=== PATIENT | male | born 1940 | race Caucasian/White ===

== ENCOUNTER 2018-11-07 05:49 | Emergency (ER) | payer OTHER ==
[2018-11-07 07:01] LABS: Absolute Lymphocytes (CBC) 1.1 K/uL (0.7-4.9); Absolute Monocytes 0.7 K/uL (0.1-1.3); Absolute Neutrophil 5.4 K/uL (1.8-8.0); Basophils % 0.6 % (0-1.3); Eosinophils % 2.8 % (0-4.4); Lymphocytes % 14.3 % (15.3-44.8); MPV 9.1 fL (7.6-11.3); Monocytes % 9.5 % (3.3-12.3); RBC Red Blood Cell Count 4.65 M/uL (4.33-5.43)
[2018-11-07 07:02] LABS: Protime INR 1.06
--- NOTE | 2018-11-07 07:41 | ER ---
Nurse's Notes [facility] Name: Mendez Bajwa Age: 78 yrs Sex: Male : 1940 Arrival Date: 11/07/2018 Time: 05:53 Bed 18 Private MD: Timothy Brown C Diagnosis: Epistaxis Presentation: 11/07 06:02 Presenting complaint: Patient states: he started having a nose bleed last night at bb approx 2130 but he got it stopped several times then went to bed at 0100 and at 0500 woke up with it bleeding again with clots. Transition of care: patient was not received from another setting of care. Onset of symptoms was November 06, 2018. Risk Assessment: Do you want to hurt yourself or someone else? Patient reports no desire to harm self or others. Initial Sepsis Screen: Does the patient meet any 2 criteria? No. Patient's initial sepsis screen is negative. Does the patient have a suspected source of infection? No. Patient's initial sepsis screen is negative. Care prior to arrival: None. 06:02 Method Of Arrival: Ambulatory 06:02 Acuity: BRYAN 3 bb Historical: - Allergies: 06:08 Celebrex; bb 06:08 Ramipril; bb - Home Meds: 06:08 amlodipine 5 mg tab every morning [Active]; amlodipine 2.5 mg tab PRN [Active]; aspirin bb 81 mg Oral chew 1 tab once daily [Active]; atorvastatin 10 mg Oral tab 1 tab once daily [Active]; Nitroglycerin Oral PRN [Active]; alfuzosin 10 mg Oral Tb24 1 tab once daily [Active]; irbesartan 75 mg oral tab 1 tab once daily [Active]; omeprazole 20 mg Oral TbEC 20 mg daily [Active]; - PMHx: 06:08 enlarged prostate; High Cholesterol; Hypertension; Myocardial infarction; Sleep Apnea; bb CAD; - PSHx: 06:08 basal cell carcinoma; bb - Immunization history:: Adult Immunizations up to date, Flu vaccine is up to date. - Social history:: Smoking status: Patient/guardian denies using tobacco, Patient/guardian denies using alcohol, street drugs. - Ebola Screening: : No symptoms or risks identified at this time. Screenin:07 Abuse screen: Denies threats or abuse. Nutritional screening: No deficits noted. jd3 Tuberculosis screening: No symptoms or risk factors identified. Fall Risk Ambulatory Aid- None/Bed Rest/Nurse Assist (0 pts). Gait- Normal/Bed Rest/Wheelchair (0 pts) Mental Status- Oriented to own ability (0 pts). Total Fish Fall Scale indicates No Risk (0-24 pts). Assessment: 06:02 General: Appears in no apparent distress. uncomfortable, Behavior is calm, cooperative, jd3 appropriate for age. Pain: Denies pain. Neuro: Level of Consciousness is awake, alert, obeys commands, Oriented to person, place, time, situation. Cardiovascular: Capillary refill < 3 seconds Patient's skin is warm and dry. Respiratory: Airway is patent Respiratory effort is even, unlabored, Respiratory pattern is regular, symmetrical. GI: No signs and/or symptoms were reported involving the gastrointestinal system. : No signs and/or symptoms were reported regarding the genitourinary system. EENT: Nares with bleeding noted Reports nose bleed. Derm: Skin is intact, Skin is dry, Skin is normal, Skin temperature is warm. Musculoskeletal: Circulation, motion, and sensation intact. Range of motion: intact in all extremities. 07:15 Reassessment: Patient appears in no apparent distress at this time. Patient and/or hb family updated on plan of care and expected duration. Pain level reassessed. Patient is alert, oriented x 3, equal unlabored respirations, skin warm/dry/pink. 07:55 Reassessment: Discharge ordered, d/c pending completion of IV bolus. NAD. at hb bedside. Vital Signs: 06:08 BP 136 / 72; Pulse 89; Resp 18 S; Temp 97.7(O); Pulse Ox 94% on R/A; Weight 94.8 kg bb (R); Height 5 ft. 11 in. (180.34 cm) (R); Pain 0/10; 06:08 Body Mass Index 29.15 (94.80 kg, 180.34 cm) bb ED Course: 05:53 Patient arrived in ED. es 05:53 Timothy Brown MD is Private Physician. es 06:02 Ramos Farfan, TRINH is Primary Nurse. jd3 06:06 Triage completed. bb 06:07 Patient has correct armband on for positive identification. Bed in low position. Call jd3 light in reach. Side rails up X 1. 06:08 Arm band placed on Patient placed in an exam room, on a stretcher, on pulse oximetry. bb Family accompanied patient. 06:16 [facility] Go[facility]C [facility]. snw 06:16 Johnathon Maddox MD is Attending Physician. snw 06:30 Inserted saline lock: 20 gauge in right antecubital area, using aseptic technique. jd3 Blood collected. 07:40 Uzma Grace MD is Referral Physician. snw 08:23 No provider procedures requiring assistance completed. IV discontinued, intact, hb bleeding controlled, No redness/swelling at site. Pressure dressing applied. Administered Medications: 07:51 Drug: NS 0.9% 500 ml Volume: 500 ml; Route: IV; Rate: 1 bolus; Site: right antecubital; hb 08:23 Follow up: Response: No adverse reaction; IV Status: Completed infusion hb Outcome: 07:40 Discharge ordered by MD. snw 08:23 Discharged to home ambulatory, with significant other. hb 08:23 Condition: stable 08:23 Discharge instructions given to patient, Instructed on discharge instructions, follow up and referral plans. medication usage, Demonstrated understanding of instructions, follow-up care, medications, Prescriptions given X 1. 08:23 Patient left the ED. hb Signatures: Saba Goetz FNP-C FNP-Csnw Minnie Hollis Brenda, RN RN Deborah Rees RN RN Ramos Mcdermott RN RN jd3
--- NOTE | 2018-11-07 07:41 | EDPHYS ---
Physician Documentation [facility] Name: Mendez Bajwa Age: 78 yrs Sex: Male : 1940 Arrival Date: 11/07/2018 Time: 05:53 Bed 18 Private MD: Timothy Brown C ED Physician Johnathon Maddox HPI: 11/07 06:25 This 78 yrs old Male presents to ER via Ambulatory with complaints of Nose snw Bleed. 06:25 The patient presents with a nose bleed, that is apparently posterior, from the right snw nare, occurred spontaneously, that is intermittent with clots, causative factors include: aspirin therapy, and the bleeding resolved prior to arrival. Onset: The symptoms/episode began/occurred suddenly, last night. Modifying factors: The symptoms are alleviated by unknown, the symptoms are aggravated by nothing. Associated signs and symptoms: The patient has no apparent associated signs or symptoms, Loss of consciousness: the patient experienced no loss of consciousness. Severity of symptoms: At their worst the symptoms were mild in the emergency department the symptoms have resolved and did so just prior to arrival. The patient has experienced a previous episode, 2016 s/p brelinta, used epistaxis balloon and took 6 mo to heal. The patient has not recently seen a physician. has seen Dr. Grace in the past. Historical: - Allergies: 06:08 Celebrex; bb 06:08 Ramipril; bb - Home Meds: 06:08 amlodipine 5 mg tab every morning [Active]; amlodipine 2.5 mg tab PRN [Active]; aspirin bb 81 mg Oral chew 1 tab once daily [Active]; atorvastatin 10 mg Oral tab 1 tab once daily [Active]; Nitroglycerin Oral PRN [Active]; alfuzosin 10 mg Oral Tb24 1 tab once daily [Active]; irbesartan 75 mg oral tab 1 tab once daily [Active]; omeprazole 20 mg Oral TbEC 20 mg daily [Active]; - PMHx: 06:08 enlarged prostate; High Cholesterol; Hypertension; Myocardial infarction; Sleep Apnea; bb CAD; - PSHx: 06:08 basal cell carcinoma; bb - Immunization history:: Adult Immunizations up to date, Flu vaccine is up to date. - Social history:: Smoking status: Patient/guardian denies using tobacco, Patient/guardian denies using alcohol, street drugs. - Ebola Screening: : No symptoms or risks identified at this time. ROS: 06:25 Constitutional: Negative for fever, chills, and weight loss, Eyes: Negative for injury, snw pain, redness, and discharge, Neck: Negative for injury, pain, and swelling, Cardiovascular: Negative for chest pain, palpitations, and edema, Respiratory: Negative for shortness of breath, cough, wheezing, and pleuritic chest pain, Abdomen/GI: Negative for abdominal pain, nausea, vomiting, diarrhea, and constipation, Back: Negative for injury and pain, : Negative for injury, bleeding, discharge, and swelling, MS/Extremity: Negative for injury and deformity, Skin: Negative for injury, rash, and discoloration, Neuro: Negative for headache, weakness, numbness, tingling, and seizure. 06:25 ENT: Positive for nose bleed. Exam: 06:24 Constitutional: This is a well developed, well nourished patient who is awake, alert, snw and in no acute distress. Head/Face: Normocephalic, atraumatic. Eyes: Pupils equal round and reactive to light, extra-ocular motions intact. Lids and lashes normal. Conjunctiva and sclera are non-icteric and not injected. Cornea within normal limits. Periorbital areas with no swelling, redness, or edema. Neck: Trachea midline, no thyromegaly or masses palpated, and no cervical lymphadenopathy. Supple, full range of motion without nuchal rigidity, or vertebral point tenderness. No Meningismus. Chest/axilla: Normal chest wall appearance and motion. Nontender with no deformity. No lesions are appreciated. Cardiovascular: Regular rate and rhythm with a normal S1 and S2. No gallops, murmurs, or rubs. Normal PMI, no JVD. No pulse deficits. Respiratory: Lungs have equal breath sounds bilaterally, clear to auscultation and percussion. No rales, rhonchi or wheezes noted. No increased work of breathing, no retractions or nasal flaring. Abdomen/GI: Soft, non-tender, with normal bowel sounds. No distension or tympany. No guarding or rebound. No evidence of tenderness throughout. Back: No spinal tenderness. No costovertebral tenderness. Full range of motion. Skin: Warm, dry with normal turgor. Normal color with no rashes, no lesions, and no evidence of cellulitis. MS/ Extremity: Pulses equal, no cyanosis. Neurovascular intact. Full, normal range of motion. Neuro: Awake and alert, GCS 15, oriented to person, place, time, and situation. Cranial nerves II-XII grossly intact. Motor strength 5/5 in all extremities. Sensory grossly intact. Cerebellar exam normal. Normal gait. 06:24 ENT: External ear(s): are unremarkable, Nose: Nasal mucosa: intact, Mouth: is normal, Posterior pharynx: is normal, Voice: is normal. Vital Signs: 06:08 BP 136 / 72; Pulse 89; Resp 18 S; Temp 97.7(O); Pulse Ox 94% on R/A; Weight 94.8 kg bb (R); Height 5 ft. 11 in. (180.34 cm) (R); Pain 0/10; 06:08 Body Mass Index 29.15 (94.80 kg, 180.34 cm) bb MDM: 06:16 Patient medically screened. snw 07:42 Data reviewed: vital signs, nurses notes. Data interpreted: Pulse oximetry: on room air snw is 94 %. Interpretation: acceptable. Counseling: I had a detailed discussion with the patient and/or guardian regarding: the historical points, exam findings, and any diagnostic results supporting the discharge/admit diagnosis, lab results, the need for outpatient follow up, to return to the emergency department if symptoms worsen or persist or if there are any questions or concerns that arise at home. Special discussion: Based on the history and exam findings, there is no indication for further emergent testing or inpatient evaluation. I discussed with the patient/guardian the need to see the ENT specialist for further evaluation of the symptoms. 11/07 06:24 Order name: CBC with Diff; Complete Time: 07:31 snw 11/07 06:24 Order name: Chem 7; Complete Time: 07:31 snw 11/07 06:24 Order name: PT-INR; Complete Time: 07:31 snw Administered Medications: 07:51 Drug: NS 0.9% 500 ml Volume: 500 ml; Route: IV; Rate: 1 bolus; Site: right antecubital; hb 08:23 Follow up: Response: No adverse reaction; IV Status: Completed infusion hb Disposition: 11:31 Co-signature as Attending Physician, Johnathon Maddox MD I agree with the assessment and shyam plan of care. Disposition: 11/07/18 07:40 Discharged to Home. Impression: Epistaxis. - Condition is Stable. - Discharge Instructions: Nosebleed, Adult. - Prescriptions for Bronte Saline Gel - insert 1 application by INTRANASAL route 2-3 times daily; 1 bottle. - Medication Reconciliation Form, Thank You Letter, Antibiotic Education, Prescription Opioid Use form. - Follow up: Uzma Grace MD; When: 1 - 2 days; Reason: Recheck today's complaints, Continuance of care, Re-evaluation by your physician. Signatures: Dispatcher [employer] EDKY Johnathon Maddox MD MD cha Therrien, Shelly, IRRADIATED FUEL HANDLER-C IRRADIATED FUEL HANDLER-Csnw Candace Santizo, RN RN Deborah Rees RN RN hb Corrections: (The following items were deleted from the chart) 08:23 07:40 11/07/2018 07:40 Discharged to Home. Impression: Epistaxis. Condition is Stable. hb Forms are Medication Reconciliation Form, Thank You Letter, Antibiotic Education, Prescription Opioid Use. Follow up: Uzma Grace; When: 1 - 2 days; Reason: Recheck today's complaints, Continuance of care, Re-evaluation by your physician. snw
[2018-11-07] MEDS ORDERED: NA CHLORIDE 0.9% 500 ML ONE (07:57)
== END 2018-11-07 08:23 | disposition home or self-care (01) ==
LOC: ER 05:49
DX: R04.0 Epistaxis (principal); N40.0 Benign prostatic hyperplasia without lower urinary tract symptoms; I10 Essential (primary) hypertension; E78.00 Pure hypercholesterolemia, unspecified; I25.2 Old myocardial infarction; Z85.828 Personal history of other malignant neoplasm of skin; Z88.8 Allergy status to other drugs, medicaments and biological substances; Z79.82 Long term (current) use of aspirin
CPT/HCPCS: 36415; 80048; 85025; 85610; 96360; 99284

== ENCOUNTER 2020-11-02 08:43 | Inpatient (IN) | payer OTHER ==
--- NOTE | 2020-11-02 09:10 | RAD REPORT ---
EXAM DESCRIPTION: RAD - Chest Single View - 11/02/2020 9:02 am CLINICAL HISTORY: FEVER Chest pain. COMPARISON: Chest Single View dated 05/23/2017; Chest Single View dated 05/12/2017; Chest Single View dated 05/09/2017; Chest Single View dated 05/08/2017 FINDINGS: Portable technique limits examination quality. The lungs are grossly clear. The heart is normal in size. No displaced fractures. IMPRESSION: No acute intrathoracic process suspected.
[2020-11-02 09:55] LABS: Absolute Lymphocytes (CBC) 0.4 K/uL (0.7-4.9); Basophils % 0.2 % (0-1.3); Hematocrit 43.1 % (39.6-49.0); Lymphocytes % 3.4 % (15.3-44.8); MPV 8.9 fL (7.6-11.3); RBC Red Blood Cell Count 4.77 M/uL (4.33-5.43)
[2020-11-02] MEDS ORDERED: IBUPROFEN 400 MG TAB ONE (10:02)
[2020-11-02] MEDS ORDERED: NA CHLORIDE 0.9% 500 ML ONE (10:02)
[2020-11-02 10:07] LABS: C-Reactive Protein 61.6 mg/L (<3.00); Ferritin 259.3 ng/mL (26-388); Potassium 3.9 mmol/L (3.5-5.1)
[2020-11-02 10:22] LABS: Platelet Estimate ADEQ; White Blood Cell Scan OK (OK)
[2020-11-02 10:23] LABS: Blood Morphology Comment NOT SEEN (NOT SEEN)
[2020-11-02 11:09] LABS: SARS-COV-2 RT PCR NEGATIVE (NEGATIVE)
[2020-11-02 13:22] LABS: Urine Bacteria <20 /HPF (NONE SEEN); Urine RBC <5 /HPF (NONE SEEN)
[2020-11-02 13:23] LABS: Urine Mucus 1+ /HPF (NONE SEEN)
[2020-11-02 13:24] LABS: Urine Blood TRACE (NEG); Urine Glucose NEGATIVE (NEG); Urine Protein 1+ (NEG); Urine pH 5.5 (5.0-7.0)
--- NOTE | 2020-11-02 13:31 | ER ---
Nurse's Notes [facility] Name: Mendez Bajwa Age: 80 yrs Sex: Male : 1940 Arrival Date: 11/02/2020 Time: 08:44 Bed 8 Private MD: Diagnosis: Fever of other and unknown origin Presentation: 11/02 08:44 Chief complaint: EMS states: received his COVID-19 vaccine on and has been sv having intermittent fever since. Vitals WNL. Coronavirus screen: Client denies travel out of the [place] in the last 14 days. At this time, the client does not indicate any symptoms associated with coronavirus-19. Ebola Screen: No symptoms or risks identified at this time. Risk Assessment: Do you want to hurt yourself or someone else? Patient reports no desire to harm self or others. Onset of symptoms was October 29, 2020. 08:44 Method Of Arrival: EMS: [facility] sv 08:44 Acuity: BRYAN 3 ss 10:46 Initial Sepsis Screen: Does the patient meet any 2 criteria? No. Patient's initial tw2 sepsis screen is negative. Does the patient have a suspected source of infection? Yes:. Triage Assessment: 08:50 General: Appears in no apparent distress. obese, well groomed, Behavior is calm, tw2 cooperative, appropriate for age. Pain: Denies pain. EENT: Reports fever, took Tylenol at 4 am. Neuro: Level of Consciousness is awake, alert, obeys commands, Oriented to person, place, time, situation. Cardiovascular: Patient's skin is warm and dry. Respiratory: Reports shortness of breath at rest cough that is Airway is patent Respiratory effort is even, unlabored, Respiratory pattern is regular, symmetrical. GI: No signs and/or symptoms were reported involving the gastrointestinal system. Abdomen is round non-distended. : No signs and/or symptoms were reported regarding the genitourinary system. Derm: Skin is intact, is healthy with good turgor, Skin is dry, Skin temperature is hot. Musculoskeletal: Range of motion: intact in all extremities. Historical: - Allergies: 08:46 Celebrex; sv 08:46 Ramipril; sv - Home Meds: 08:55 amlodipine 2.5 mg tab PRN [Active]; amlodipine 5 mg tab every morning [Active]; aspirin tw2 81 mg Oral chew 1 tab once daily [Active]; irbesartan 75 mg Oral tab 1 tab once daily [Active]; omeprazole 20 mg Oral TbEC 20 mg daily [Active]; alfuzosin 10 mg Oral Tb24 1 tab once daily [Active]; atorvastatin 10 mg Oral tab 1 tab once daily [Active]; Nitroglycerin Oral PRN [Active]; sildenafil oral 50 oral [Active]; Vitamin C 250 mg Oral tab [Active]; zinc 50 mg oral tab [Active]; Vitamin D3 2,000 unit oral cap [Active]; - PMHx: 08:46 CAD; High Cholesterol; enlarged prostate; Hypertension; Myocardial infarction; Sleep sv Apnea; - PSHx: 08:46 basal cell carcinoma; sv - Immunization history:: Adult Immunizations. - Social history:: Smoking status: . - Family history:: not pertinent. - Hospitalizations: : No recent hospitalization is reported. Screenin:51 Abuse screen: Denies threats or abuse. Nutritional screening: No deficits noted. tw2 Tuberculosis screening: No symptoms or risk factors identified. Fall Risk Secondary diagnosis (15 points) impaired mobility. Assessment: 08:50 Reassessment: see triage assessment. tw2 09:40 Reassessment: Patient appears in no apparent distress at this time. No changes from tw2 previously documented assessment. Patient and/or family updated on plan of care and expected duration. Pain level reassessed. Patient is alert, oriented x 3, equal unlabored respirations, skin warm/dry/pink. 10:46 Reassessment: Patient appears in no apparent distress at this time. No changes from tw2 previously documented assessment. Patient and/or family updated on plan of care and expected duration. Pain level reassessed. Patient is alert, oriented x 3, equal unlabored respirations, skin warm/dry/pink. 11:54 Reassessment: Patient appears in no apparent distress at this time. No changes from tw2 previously documented assessment. Patient and/or family updated on plan of care and expected duration. Pain level reassessed. Patient is alert, oriented x 3, equal unlabored respirations, skin warm/dry/pink. 12:55 Reassessment: Patient appears in no apparent distress at this time. No changes from tw2 previously documented assessment. Patient and/or family updated on plan of care and expected duration. Pain level reassessed. Patient is alert, oriented x 3, equal unlabored respirations, skin warm/dry/pink. 14:00 Reassessment: Patient appears in no apparent distress at this time. No changes from hb previously documented assessment. Patient and/or family updated on plan of care and expected duration. Pain level reassessed. Patient is alert, oriented x 3, equal unlabored respirations, skin warm/dry/pink. 15:00 Reassessment: Patient appears in no apparent distress at this time. No changes from hb previously documented assessment. Patient and/or family updated on plan of care and expected duration. Pain level reassessed. Patient is alert, oriented x 3, equal unlabored respirations, skin warm/dry/pink. 16:00 Reassessment: Patient appears in no apparent distress at this time. No changes from hb previously documented assessment. Patient and/or family updated on plan of care and expected duration. Pain level reassessed. Patient is alert, oriented x 3, equal unlabored respirations, skin warm/dry/pink. 17:15 Reassessment: Patient appears in no apparent distress at this time. Patient and/or hb family updated on plan of care and expected duration. Pain level reassessed. Patient is alert, oriented x 3, equal unlabored respirations, skin warm/dry/pink. 18:26 Reassessment: Patient appears in no apparent distress at this time. No changes from tw2 previously documented assessment. Patient and/or family updated on plan of care and expected duration. Pain level reassessed. Patient is alert, oriented x 3, equal unlabored respirations, skin warm/dry/pink. Vital Signs: 08:50 BP 119 / 58; Pulse 89; Resp 18; Pulse Ox 94% on R/A; ss 08:50 Temp 100.6(O); Weight 95.25 kg (R); Height 5 ft. 11 in. (180.34 cm) (R); tw2 09:40 BP 124 / 70; Pulse 85; Resp 20; Temp 101.8(O); Pulse Ox 94% on R/A; tw2 10:43 BP 118 / 68; Pulse 79; Resp 15; Temp 100.2(O); Pulse Ox 95% on R/A; tw2 11:54 BP 110 / 69; Pulse 75; Resp 17; Temp 97.9(O); Pulse Ox 95% on R/A; tw2 12:54 BP 96 / 66; Pulse 62; Resp 12; Pulse Ox 95% on R/A; tw2 13:47 Temp 96.4(O); dh3 14:00 BP 98 / 46; Pulse 70; Resp 19; Pulse Ox 96% on 2 lpm NC; tw2 15:00 BP 103 / 59; Pulse 79; Resp 18; Pulse Ox 96% on 2 lpm NC; tw2 16:00 BP 114 / 68; Pulse 85; Resp 14; Pulse Ox 95% on 2 lpm NC; tw2 17:00 BP 145 / 68; Pulse 93; Resp 19; Pulse Ox 95% on 2 lpm NC; tw2 18:24 BP 143 / 77; Pulse 97; Resp 22; Pulse Ox 97% on 2 lpm NC; tw2 19:39 BP 135 / 89; Pulse 107; Resp 18; Pulse Ox 94% on 2 lpm NC; rv 08:50 Body Mass Index 29.29 (95.25 kg, 180.34 cm) tw2 ED Course: 08:44 Patient arrived in ED. ds1 08:44 Placed in gown. Bed in low position. lacrosse player on. Pulse ox on. NIBP on. tw2 08:45 Ted Song MD is Attending Physician. rn 08:45 Triage completed. sv 08:46 Arm band placed on. sv 08:52 Jennifer Webster, TRINH is Primary Nurse. tw2 09:00 X-ray completed. Portable x-ray completed in exam room. Patient tolerated procedure sw well. 09:02 XRAY Chest (1 view) In Process Unspecified. EDMS 09:50 Inserted saline lock: 20 gauge in right hand, using aseptic technique. Blood collected. tw2 09:57 CBC Smear Scan Sent. sv 12:29 Urine Culture Sent. tw2 12:29 Urine Microscopic Only Sent. tw2 13:30 Timothy Brown MD is Hospitalizing Provider. rn 19:14 Primary Nurse role handed off by Jennifer Webster, TRINH mw2 19:36 Camilo Geronimo, TRINH is Primary Nurse. rv 19:38 No provider procedures requiring assistance completed. IV is patent, with fluids rv infusing freely, Patient admitted, IV remains in place. Administered Medications: 09:51 Drug: Motrin 800 mg Route: PO; tw2 10:50 Follow up: Response: No adverse reaction; Temperature is decreased tw2 09:51 Drug: NS 0.9% 500 ml Route: IV; Rate: bolus; Site: right hand; tw2 10:50 Follow up: Response: No adverse reaction; IV Status: Completed infusion; IV Intake: tw2 500ml 14:55 Drug: LevaQUIN 500 mg Volume: 100 ml; Route: IVPB; Infused Over: 60 mins; Site: right hb antecubital; 15:55 Follow up: Response: No adverse reaction; IV Status: Completed infusion; IV Intake: tw2 100ml Intake: 10:50 IV: 500ml; Total: 500ml. tw2 15:55 IV: 100ml; Total: 600ml. tw2 Output: 12:29 Urine: 100ml (Voided); Total: 100ml. tw2 Outcome: 13:30 Decision to Hospitalize by Provider. rn 19:38 Admitted to Med/surg accompanied by tech, via wheelchair, room 219, Other sbar, ekg rv Report called to ABHAY TSANG 19:38 Condition: good 19:38 Instructed on the need for admit. 19:39 Patient left the ED. rv Signatures: Dispatcher [employer] Uzma Marie RN TRINH Patsy Ortega ds1 Ted Song MD MD rn Smirch, Shelby, RN RN ss Warren, Shannon sw Baxter, Heather, RN RN hb Wise, Tara, RN RN tw2 Brittney Grace 3 George Dow 2 Camilo Geronimo RN RN rv Corrections: (The following items were deleted from the chart) 08:49 08:44 Acuity: BRYAN 4 [facility] 12:29 11:54 BP 110 / 69; Pulse 75bpm; Resp 17bpm; Pulse Ox 95% RA; tw2 tw2 18:25 16:00 BP 114 / 68; Pulse 85bpm; Resp 14bpm; Pulse Ox 95% RA; tw2 tw2 18:25 15:00 BP 103 / 59; Pulse 79bpm; Resp 18bpm; Pulse Ox 96% RA; tw2 tw2
--- NOTE | 2020-11-02 13:31 | EDPHYS ---
Physician Documentation [facility] Name: Mendez Bajwa Age: 80 yrs Sex: Male : 1940 Arrival Date: 11/02/2020 Time: 08:44 Bed 8 Private MD: ED Physician Ted Song HPI: 11/02 08:58 This 80 yrs old Male presents to ER via EMS with complaints of Fever. rn 08:58 The patient reports fever, not measured (subjective). Onset: The symptoms/episode rn began/occurred yesterday. Modifying factors: there are no obvious modifying factors. Severity of symptoms: At their worst the symptoms were mild in the emergency department the symptoms are unchanged. The patient has not experienced similar symptoms in the past. Reports had first COVID vaccine , felt ok, went to eat at [employer], now reports chills and fever since yesterday. Denies chest pain/sob/abd pain/vomiting/diarrhea. . Historical: - Allergies: 08:46 Celebrex; sv 08:46 Ramipril; sv - Home Meds: 08:55 amlodipine 2.5 mg tab PRN [Active]; amlodipine 5 mg tab every morning [Active]; aspirin tw2 81 mg Oral chew 1 tab once daily [Active]; irbesartan 75 mg Oral tab 1 tab once daily [Active]; omeprazole 20 mg Oral TbEC 20 mg daily [Active]; alfuzosin 10 mg Oral Tb24 1 tab once daily [Active]; atorvastatin 10 mg Oral tab 1 tab once daily [Active]; Nitroglycerin Oral PRN [Active]; sildenafil oral 50 oral [Active]; Vitamin C 250 mg Oral tab [Active]; zinc 50 mg oral tab [Active]; Vitamin D3 2,000 unit oral cap [Active]; - PMHx: 08:46 CAD; High Cholesterol; enlarged prostate; Hypertension; Myocardial infarction; Sleep sv Apnea; - PSHx: 08:46 basal cell carcinoma; sv - Immunization history:: Adult Immunizations. - Social history:: Smoking status: . - Family history:: not pertinent. - Hospitalizations: : No recent hospitalization is reported. 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 Exam: 08:58 Constitutional: This is a well developed, well nourished patient who is awake, alert, rn mild tachypnea Head/Face: Normocephalic, atraumatic. ENT: No stridor Cardiovascular: Regular rate and rhythm. No pulse deficits. Respiratory: + mild tachypnea, no retractions, diminished at bases Abdomen/GI: soft, non-tender Skin: Warm, dry MS/ Extremity: Pulses equal, no cyanosis. Neurovascular intact. Full, normal range of motion. Equal circumference. Neuro: Awake and alert, GCS 15, oriented to person, place, time, and situation. Motor strength 5/5 in all extremities. Sensory grossly intact. Vital Signs: 08:50 BP 119 / 58; Pulse 89; Resp 18; Pulse Ox 94% on R/A; ss 08:50 Temp 100.6(O); Weight 95.25 kg (R); Height 5 ft. 11 in. (180.34 cm) (R); tw2 09:40 BP 124 / 70; Pulse 85; Resp 20; Temp 101.8(O); Pulse Ox 94% on R/A; tw2 10:43 BP 118 / 68; Pulse 79; Resp 15; Temp 100.2(O); Pulse Ox 95% on R/A; tw2 11:54 BP 110 / 69; Pulse 75; Resp 17; Temp 97.9(O); Pulse Ox 95% on R/A; tw2 12:54 BP 96 / 66; Pulse 62; Resp 12; Pulse Ox 95% on R/A; tw2 13:47 Temp 96.4(O); dh3 14:00 BP 98 / 46; Pulse 70; Resp 19; Pulse Ox 96% on 2 lpm NC; tw2 15:00 BP 103 / 59; Pulse 79; Resp 18; Pulse Ox 96% on 2 lpm NC; tw2 16:00 BP 114 / 68; Pulse 85; Resp 14; Pulse Ox 95% on 2 lpm NC; tw2 17:00 BP 145 / 68; Pulse 93; Resp 19; Pulse Ox 95% on 2 lpm NC; tw2 18:24 BP 143 / 77; Pulse 97; Resp 22; Pulse Ox 97% on 2 lpm NC; tw2 19:39 BP 135 / 89; Pulse 107; Resp 18; Pulse Ox 94% on 2 lpm NC; rv 08:50 Body Mass Index 29.29 (95.25 kg, 180.34 cm) tw2 MDM: 08:45 Patient medically screened. rn 13:18 Differential diagnosis: viral Infection, bacterial infection, URI, pneumonia UTI, rn adverse reaction to covid vaccine. Data reviewed: vital signs, nurses notes, lab test result(s), radiologic studies, plain films, and as a result, I will admit patient. Counseling: I had a detailed discussion with the patient and/or guardian regarding: the historical points, exam findings, and any diagnostic results supporting the discharge/admit diagnosis, lab results, radiology results, the need for further work-up and treatment in the hospital. Response to treatment: the patient's symptoms have mildly improved after treatment, and as a result, I will admit patient. Admission orders: after a detailed discussion of the patient's condition and case, the admit orders are written by me. ED course: Pt with unknown source of fever, slight elevation of procal, borderline BP, consulted with Dr. Brown, prefers to observe overnight and cover with levaquin and fluid hydration.. 11/02 08:47 Order name: CBC with Diff; Complete Time: 10:40 rn 11/02 08:47 Order name: Basic Metabolic Panel; Complete Time: 10:40 rn 11/02 08:47 Order name: Urine Culture rn 11/02 08:47 Order name: Urine Microscopic Only rn 11/02 08:47 Order name: Procalcitonin; Complete Time: 11:19 rn 11/02 08:47 Order name: Strep; Complete Time: 10:40 rn 11/02 08:49 Order name: Blood Culture Adult (2) rn 11/02 08:49 Order name: CRP; Complete Time: 10:40 rn 02/08 08:49 Order name: Lactate; Complete Time: 11:19 rn 11/02 08:49 Order name: Ferritin; Complete Time: 10:40 rn 11/02 09:57 Order name: CBC Smear Scan; Complete Time: 10:40 EDNV 11/02 10:15 Order name: Throat Culture EDNV 11/02 08:47 Order name: IV Start; Complete Time: 09:44 rn 11/02 08:47 Order name: Urine Dipstick-Ancillary (obtain specimen); Complete Time: 12:29 rn 11/02 08:47 Order name: XRAY Chest (1 view); Complete Time: 09:11 rn 11/02 09:44 Order name: EKG; Complete Time: 09:45 tw2 11/02 09:44 Order name: EKG - Nurse/Tech; Complete Time: 09:45 tw2 11/02 11:09 Order name: COVID-19/FLU A+B; Complete Time: 11:19 EDMS 11/02 12:57 Order name: Urine Dipstick--Ancillary (enter results) 11/02 17:31 Order name: Diet Regular; Complete Time: 17:31 bd Administered Medications: 09:51 Drug: Motrin 800 mg Route: PO; tw2 10:50 Follow up: Response: No adverse reaction; Temperature is decreased tw2 09:51 Drug: NS 0.9% 500 ml Route: IV; Rate: bolus; Site: right hand; tw2 10:50 Follow up: Response: No adverse reaction; IV Status: Completed infusion; IV Intake: tw2 500ml 14:55 Drug: LevaQUIN 500 mg Volume: 100 ml; Route: IVPB; Infused Over: 60 mins; Site: right hb antecubital; 15:55 Follow up: Response: No adverse reaction; IV Status: Completed infusion; IV Intake: tw2 100ml Disposition: 11/02/20 13:30 Hospitalization ordered by Timothy Brown for Observation. Preliminary diagnosis is Fever of other and unknown origin. - Bed requested for Telemetry/MedSurg (observation). - Status is Observation. rv - Condition is Stable. - Problem is new. - Symptoms have improved. Signatures: Dispatcher [employer] EDNV Savannah Gutierrez Stephanie, RN RN Ted Song MD MD rn Baxter, Heather, RN RN Jennifer Webster RN RN tw2 Camilo Geronimo, RN RN rv Corrections: (The following items were deleted from the chart) 10:02 08:49 CORONAVIRUS+MR.LAB.BRZ ordered. EDMS EDMS 10:03 08:48 Influenza Screen (A \T\ B)+BA.LAB.BRZ ordered. EDNV EDMS 18:42 13:30 Hospitalization Ordered by A Kevin TINSLEY for Observation. Preliminary diagnosis is bd Fever of other and unknown origin. Bed requested for Telemetry/MedSurg (observation). Status is Observation. Condition is Stable. Problem is new. Symptoms have improved. rn 19:39 18:42 11/02/2020 13:30 Hospitalization Ordered by A Kevin TINSLEY for Observation. rv Preliminary diagnosis is Fever of other and unknown origin. Bed requested for Telemetry/MedSurg (observation). Status is Observation. Condition is Stable. Problem is new. Symptoms have improved. bd
[2020-11-02] MEDS ORDERED: Levofloxacin500mg IV 500 MG/100 ML BAG IV ONE (13:55)
[2020-11-02] MEDS ORDERED: ONDANSETRON 4 MG/2 ML VIAL IV PRN (20:12)
[2020-11-02 22:45] VITALS: BMI 29.4
[2020-11-03] MEDS: ACETAMINOPHEN 500 MG TAB PO PRN ×4 (00:11→20:56)
[2020-11-03] MEDS: NA CHLORIDE 0.9% 1,000 ML IV SCH ×5 (00:12→20:55)
[2020-11-03] MEDS ORDERED: NITROGLYCERIN 0.4 MG/TAB SL PRN (04:36)
[2020-11-03 05:22] LABS: Absolute Lymphocytes (CBC) 0.5 K/uL (0.7-4.9); Basophils % 0.1 % (0-1.3); Lymphocytes % 3.2 % (15.3-44.8); RBC Red Blood Cell Count 4.27 M/uL (4.33-5.43)
[2020-11-03 05:36] LABS: Albumin 2.8 g/dL (3.4-5.0); Bilirubin Direct 0.3 mg/dL (0-0.2); Bilirubin Total 0.7 mg/dL (0.2-1.0); Potassium 3.9 mmol/L (3.5-5.1); Protein, Total 6.6 g/dL (6.4-8.2)
[2020-11-03] MEDS ORDERED: CEFTRIAXONE 1 GM/NS 50 ML 1 GM/50 ML BAG IV SCH (09:00)
[2020-11-03] MEDS ORDERED: AMLODIPINE 2.5 MG TAB PO SCH (09:00)
[2020-11-03] MEDS: ENOXAPARIN 40 MG/0.4 ML SQ SCH (09:19)
[2020-11-03] MEDS: CEFTRIAXONE/SWI 1gm 1 GM/10 ML SYR IV SCH ×2 (09:19→20:56)
[2020-11-03] MEDS: IRBESARTAN 150 MG TAB PO SCH (09:20)
[2020-11-03] MEDS: ASPIRIN EC 81 MG TAB PO SCH (09:21)
[2020-11-03] MEDS: AMLODIPINE 5 MG TAB PO SCH (09:21)
[2020-11-03] MEDS: PANTOPRAZOLE 40MG TABLET PO SCH (09:23)
--- NOTE | 2020-11-03 12:38 | RAD REPORT ---
EXAM DESCRIPTION: CT - Chest Abd Pelvis Wo Con - 11/03/2020 10:50 am CLINICAL HISTORY: fever, shortness of breath, abdominal pain COMPARISON: Chest Single View dated 11/02/2020 TECHNIQUE: Axial 5 millimeter thick images of the chest, abdomen and pelvis were obtained without IV contrast. Oral contrast was administered. All CT scans are performed using dose optimization technique as appropriate and may include automated exposure control or mA/KV adjustment according to patient size. FINDINGS: No mass lesion. No evidence for bacterial pneumonia in the lung parenchyma and no COVID-19 or non COVID viral pneumonia findings. No pneumothorax or pleural effusion. No chest wall mass or a bnormal axillary lymphadenopathy seen. Mediastinal and hilar regions show no mass or significant lym phadenopathy. No significant cardiac finding. No pericardial effusion. Aortic and Coronary artery ca lcifications are present. The liver, spleen and pancreas show no significant findings for non contrast imaging. No gallbladder abnormality identifiable. Gallstones can be occult. Active gall bladder process not suspected. No bi liary tree dilatation. No hydronephrosis or suspicious renal mass. Isodense masses and pyelonephritis cannot be excluded on non contrast imaging. A 3 centimeter homogeneous fluid attenuation round mass upper pole left kidney is almost certainly an incidental cyst. There is bilateral, symmetric perinephric stranding. This is nonspecific finding. No urinary bladder abnormalities. Prostate gland is mildly enlarged. There is n o stranding or edema in the adjacent fat. No dilated bowel loops or focal ball bowel wall thickening. No active bowel process identifiable. No free air, free fluid or inflammatory stranding. No mass or bulky lymphadenopathy. Fat filled inguina l hernias are present small in size. Degenerative changes are present throughout the spine. No specific finding that would suggest disciti s or osteomyelitis. IMPRESSION: CT chest, abdomen and pelvis imaging shows no acute or emergent finding. No abnormality seen as a possible source for fever. Pyelonephritis cannot be excluded on noncontrast imaging. CT abdomen and pelvis imaging shows no significant or suspicious finding.
[2020-11-03] MEDS ORDERED: DIPHENHYDRAMINE 25 MG TAB/CAP PO ONE (13:07)
[2020-11-03] MEDS: ASCORBIC ACID 500 MG TABLET PO SCH (13:24)
[2020-11-03] MEDS: VITAMIN D 1000 UNIT TAB PO SCH (13:24)
[2020-11-03] MEDS: ZINC SULFATE 220 MG CAP PO SCH (13:25)
[2020-11-03] MEDS: ALBUTEROL 2.5 MG/3 ML NEB SOL NEB SCH ×2 (13:42→20:05)
[2020-11-03] MEDS: Levofloxacin500mg IV 500 MG/100 ML BAG IV SCH (14:02)
--- OUTSIDE RECORDS SUMMARY | 2020-11-03 19:53 | XMS REPORT | Summary of Care ---
:1940 Author Organization [facility] Address [address] [place] [id number] Care Team Providers Name Role Phone Kevin Babak Lynch Primary Care Provider Reason for Visit Reason Comments LAB Exposure Encounter Details Date Type Department Care Team Description 08/25/2020 Laboratory Only [facility] Family Aleksandra Bradford, AERIAL APPLICATOR [address] [place], [place] [id number] Exposure to Medicine - [facility], Ad[facility] Fam Pob I SARS-associated [address] [facility] coronaviru s ([address] Dx) [place] [address] Allergies Not on Filedocumented as of this encounter (statuses as of 08/25/2020) Medications Not on filedocumented as of this encounter (statuses as of 08/25/2020) Active Problems Not on filedocumented as of this encounter (statuses as of 08/25/2020) Social History Tobacco Use Types Packs/Day Years Used Date Never Assessed Sex Assigned at Date Recorded Not on file COVID-19 Exposure Response Date Recorded In the last month, have you been in contact with Yes 08/25/2020 4:13 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 documented as of this encounter Last Filed Vital Signs Not on filedocumented in this encounter Nursing Notes Ele Recinos MA - 08/25/2020 4:00 PM CSTRobjuan francisco Bajwa is a 80 year old male here for COVID Screening with a Nasopharyngeal Swab All droplet and contact precautions taken with appropriate PPE worn while interacting with patient. ? Goggles ? N95 Mask ? Gloves ? Gown RR 14 Pulse 84 Ox 98% Patient educated on plan of care for visit, swabbing technique, risks and benefits of test and length of time to receive results. Verbal consent obtained to perform test. CDC Fact Sheet for Patients nCoV Diagnostic Panel dated 12/08/2019 and Factsheet What to Do if Sick with COVID 19 11/18/19 provided. Bilate nares swabbed during COVID19 nasopharyngeal swab. Patient swabbed per appropriate nasopharyngeal technique, and patient tolerated well. Patient was discharged from the testing clinic in stable condition. ELE RECINOS MA 08/25/2020 4:13 PM \ A ENGINEER documented in this encounter Plan of Treatment Name Type Priority Associated Diagnoses Order S chedule COVID-19 (MOLECULAR LAB Routine Exposure to Expected : 08/25/2020, TESTING SARS-associated Expires: 021 NUCLEIC ACID coronavirus AMPLIFICATION) Health Maintenance Due Date Last Done Comments Depression Screening 1952 DTaP,Tdap,and Td Vaccines (1 - Tdap) 1957 Zoster Recombinant Vaccine (SHINGRIX) (1 of 2) 1988 PNEUMOCOCCAL VACCINES 65+ (1 of 1 - PPSV23) 2003 INFLUENZA VACCINE (#1) 2020 documented as of this encounter Results Not on filedocumented in this encounter Visit Diagnoses Diagnosis Exposure to SARS-associated coronavirus - Primary documented in this encounter Additional Health Concerns Infection Onset Date Last Indicated Resolved Time COVID-19 Rule Out 08/25/2020 08/25/2020 documented as of this encounter Insurance Payer Benefit Plan Subscriber ID Effective Phone Address Typ e / Group Dates AETNA - AETNA [id number] 2019-[id number] [address]OX Medic are Adv [place]NA[place]ED MEDICARE [place] nt [id number] [place] [address] (Faith) [place] [address] documented as of this encounter
--- OUTSIDE RECORDS SUMMARY | 2020-11-03 19:53 | XMS REPORT | Continuity of Care Document ---
:1940 Author Organization [facility] t Address [address] [place] [address] [address]. Sch[address] [place] [address] Care Team Providers Name Role Phone Lab, Gurdeep Pob I Attending Clinician Unavailable Problems This patient has no known problems. Allergies, Adverse Reactions, Alerts This patient has no known allergies or adverse reactions. Medications This patient has no known medications. Procedures This patient has no known procedures. Encounters Start End Encounter Admission Attending Care Care Encounter Source Date/Time Date/Time Type Type Clinicians Facility Department ID 2020-08-25 2020-08-25 Laboratory Lab, [facility] [id number] 16:00:38 16:20:38 Only Fam Pob I [employer] [id number] [place] [id number] [place] [phone] [address] Results This patient has no known results.
[2020-11-03] MEDS: ATORVASTATIN 10 MG TAB PO SCH (20:57)
[2020-11-03] MEDS: TAMSULOSIN 0.4 MG SR CAP PO SCH (20:57)
[2020-11-03 20:59] LABS: Potassium 3.8 mmol/L (3.5-5.1)
[2020-11-04] MEDS: ALBUTEROL 2.5 MG/3 ML NEB SOL NEB SCH ×4 (02:00→20:35)
[2020-11-04] MEDS: ACETAMINOPHEN 500 MG TAB PO PRN ×2 (02:23→09:21)
[2020-11-04 04:40] LABS: Absolute Lymphocytes (CBC) 0.2 K/uL (0.7-4.9); Basophils % 0.2 % (0-1.3); Hematocrit 34.5 % (39.6-49.0); Lymphocytes % 2.5 % (15.3-44.8); MPV 9.1 fL (7.6-11.3); RBC Red Blood Cell Count 3.81 M/uL (4.33-5.43)
[2020-11-04 05:01] LABS: Magnesium 1.8 mg/dL (1.8-2.4); Potassium 3.3 mmol/L (3.5-5.1)
--- NOTE | 2020-11-04 05:17 | HP ---
Date of Admission: 11/02/2020 Chief Complaint: Fever and chills. History Of Present Illness: This is an 80-year-old pleasant male patient who had his first dose of COVID-19 vaccine 4 days ago and after this, he started to have fever and chills. Denies any nasal congestion and nasal drainage. No sore throat. No cough. No shortness of breath. No abdominal complaints. No GI or urinary complaints. No rash. He came into the emergency room with these complaints. After he was evaluated, he was admitted to the hospital. When I saw him, he was in the emergency room, lying in bed, not in distress. Allergies: LISTED ALLERGIC TO CELEBREX CAUSING RASH AND ALSO ALLERGIC TO RAMIPRIL CAUSING RASH AND HIVES. Medications: List reviewed. Review of Systems: Constitutional: As mentioned above. All other systems reviewed and negative. Past Medical History: Significant for gastroesophageal reflux disease, benign prostatic hypertrophy, hypertension, hyperlipidemia, coronary artery disease with history of myocardial infarction, October 05, 2015, and osteoarthritis. Past Surgical History: Significant for coronary artery stent placement in 1996 and October 05, 2015, and removal of basal cell carcinoma. Family History: Myocardial infarction. Social History: Negative for smoking, use of alcohol occasional. Physical Examination: Vital Signs: When he first came in, temperature 100.6, pulse 89, respiratory rate 18, blood pressure 119/58. His height 5 feet 11 inches, weight 210 pounds. General: Awake, alert, oriented, not in distress. HEENT: Head atraumatic, normocephalic. Conjunctivae nonerythematous. Sclerae white. Mouth, no thrush or edema noted. Ears/Nose, no mass, lesion, discharge noted. Neck: Supple. No JVD, lymph nodes, bruit, thyromegaly noted. Lungs: Bilateral good equal air entry. Clear to auscultation. No rhonchi. No rales. Heart: Normal heart sounds, no murmur or gallop. Abdomen: Soft, bowel sounds normal. No guarding, rigidity, tenderness, mass, hepatosplenomegaly, distention, or bruit noted. Extremities: No leg edema. No calf tenderness. Skin: No rash, ulcer, cellulitis. Lymphatics: No lymph node enlargement in neck, supraclavicular, infraclavicular region. Neuro: No focal neurological deficit. Chest: Unremarkable. External Genitalia: Deferred. Rectal: Deferred. Laboratory Data: White count 12.5, hemoglobin 14.3, and a platelet count of 202. Sodium 137, potassium 3.9, chloride 105, bicarb 24, BUN 18, creatinine 1.19, glucose 106. CRP 61.6. Lactic acid 1.8. Procalcitonin 0.10. Urinalysis, trace blood, 1+ protein, otherwise negative. Chest x-ray, no acute changes. COVID-19 test negative. Influenza A and B negative. Impression: 1. Fever. 2. Coronary artery disease. 3. Hypertension. 4. Hyperlipidemia. 5. Gastroesophageal reflux disease. 6. Benign prostatic hypertrophy. 7. Osteoarthritis, multiple sites. 8. We will go ahead and admit the patient to hospital for further evaluation and management of this problem. We will follow up on culture results. Meanwhile, we will give him IV fluid. Home medications will be continued. DVT prophylaxis will be given using Lovenox per order and empiric antibiotic was started, Levaquin. At this point, we will monitor in the hospital for any obvious signs, symptoms of any infection. Meanwhile, we will keep in mind about possibility of fever and chills type of side effect from his COVID- 19 vaccination but that would be diagnosis of exclusion. Details were discussed with the patient. RINA/ADARSH Voice ID: [id number] RUEL
[2020-11-04] MEDS ORDERED: POTASSIUM CL SA 10 MEQ TAB PO ONE (06:22)
[2020-11-04] MEDS: NA CHLORIDE 0.9% 1,000 ML IV SCH ×4 (06:32→19:24)
[2020-11-04] MEDS: METHYLPREDNISOLONE 125 MG INJ IV SCH ×2 (07:19→16:18)
[2020-11-04] MEDS: ENSURE ENLIVE 237 ML CAN PO SCH ×3 (07:21→21:26)
[2020-11-04] MEDS: AMLODIPINE 5 MG TAB PO SCH (08:08)
[2020-11-04] MEDS: IRBESARTAN 150 MG TAB PO SCH (08:10)
[2020-11-04] MEDS: PANTOPRAZOLE 40MG TABLET PO SCH (08:10)
[2020-11-04] MEDS: ENOXAPARIN 40 MG/0.4 ML SQ SCH (08:11)
[2020-11-04] MEDS: CEFTRIAXONE/SWI 1gm 1 GM/10 ML SYR IV SCH ×2 (08:11→21:27)
[2020-11-04] MEDS: ASPIRIN EC 81 MG TAB PO SCH (08:11)
--- NOTE | 2020-11-04 09:09 | PN ---
Date of Progress Note: 11/03/2020 Subjective: The patient was seen for followup in the morning. He was lying in bed, not in distress. No new complaints or problems reported by him. No cough, congestion, shortness of breath. No abdo elizabeth pain. No GI or urinary complaints. No skin rash. Objective: Vital Signs: Reviewed. His maximum temperature was 103.3 degree Fahrenheit around 3 a.m . Last temperature was 100.8 this morning. HEENT: Unremarkable. Lungs: Clear to auscultation. No rales. No wheezing. Heart: Sounds normal. Abdomen: Soft. Bowel sounds normal. No guarding, rigidity, tenderness, or distention. Extremities: No leg edema. Skin: No rash. Laboratory Data: White count has gone up to 15.2 this morning with hemoglobin 12.9, platelets 180. Sodium 128, potassium 3.9, chloride 107, bicarb 23, BUN 24, creatinine 1.59, glucose 107, AST 53, ALT 23, alkaline phosphatase 98, total bilirubin 0.7, procalcitonin 3.63. Impression: 1.Fever. 2.Hypertension. 3.Hyperlipidemia. 4.Acute kidney injury. 5.Anemia, unspecified. Plan: The patient continues to have fever without any definite source of infection. Empiric antibio tic, Levaquin, which was started after he came to emergency room. We will continue that. We will ad d ceftriaxone. We will follow up on culture results. So far, cultures are negative. CAT scan of ch est, abdomen, and pelvis was done without contrast today and that has not shown any acute findings. IV fluid rate was increased considering acute kidney injury and we will follow up on his electrolyte and renal function. RINA/MODL Voice ID: [id number] Report ID: [id number]
[2020-11-04] MEDS: ASCORBIC ACID 500 MG TABLET PO SCH (14:13)
[2020-11-04] MEDS: ZINC SULFATE 220 MG CAP PO SCH (14:14)
[2020-11-04] MEDS: VITAMIN D 1000 UNIT TAB PO SCH (14:14)
[2020-11-04] MEDS: Levofloxacin500mg IV 500 MG/100 ML BAG IV SCH (15:15)
[2020-11-04 15:35] LABS: Potassium 3.9 mmol/L (3.5-5.1)
[2020-11-04] MEDS ORDERED: GLUCAGON 1 MG/VIAL IM PRN (15:51)
[2020-11-04] MEDS ORDERED: D50W 25 GM/50 ML VIAL IV PRN (16:10)
[2020-11-04] MEDS: INSULIN -REGULAR HUMAN 50 UNIT/0.5 ML ML SQ SCH ×2 (16:18→21:00)
[2020-11-04] MEDS: TAMSULOSIN 0.4 MG SR CAP PO SCH (21:26)
[2020-11-04] MEDS: ATORVASTATIN 10 MG TAB PO SCH (21:29)
[2020-11-05] MEDS: METHYLPREDNISOLONE 125 MG INJ IV SCH (01:02)
[2020-11-05] MEDS: ALBUTEROL 2.5 MG/3 ML NEB SOL NEB SCH ×2 (02:18→08:24)
[2020-11-05] MEDS: NA CHLORIDE 0.9% 1,000 ML IV SCH (02:49)
[2020-11-05 06:13] LABS: Absolute Lymphocytes (CBC) 0.3 K/uL (0.7-4.9); Basophils % 0.1 % (0-1.3); Hematocrit 36.6 % (39.6-49.0); Lymphocytes % 2.9 % (15.3-44.8); MPV 9.1 fL (7.6-11.3); RBC Red Blood Cell Count 4.02 M/uL (4.33-5.43)
[2020-11-05 06:15] LABS: Magnesium 2.3 mg/dL (1.8-2.4); Potassium 3.5 mmol/L (3.5-5.1)
[2020-11-05] MEDS: INSULIN -REGULAR HUMAN 50 UNIT/0.5 ML ML SQ SCH (07:30)
--- NOTE | 2020-11-05 08:01 | PN ---
Date of Progress Note: 11/04/2020 Subjective: The patient was seen this morning for followup. No new complaints or problems reported by him. Overall, he feels little better. When I saw him, he had just started to have chills. Denies any other specific complaints. His was at bedside. Objective: Vital Signs: Reviewed. HEENT: Unremarkable. Lungs: Clear to auscultation. No wheezing. No rales. Heart: Sounds normal. Abdomen: Soft. Bowel sounds normal. No guarding, rigidity, tenderness, or distention. Extremities: No leg edema. Skin: No rash. 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 Neck: Supple. Laboratory Data: White count 8.9, hemoglobin 11.5, platelets 157. Sodium 138, potassium 3.3, chloride 109, bicarb 22, BUN 27, creatinine 1.77, glucose 125. Impression: 1. Fever. 2. Acute kidney injury. 3. Anemia. 4. Hypokalemia. Plan: We will go ahead and continue current IV fluid. We will monitor electrolyte and renal function, replace potassium per order. The patient's renal function is slightly better this morning compared to yesterday evening. Cultures remains negative so far, no definite evidence of any infection. Empiric antibiotics will be continued at this point. I strongly suspect that the patient's current presentation of fever, chills, and this acute kidney injury, this is all due to his COVID-19 vaccine until unless proven otherwise. reports that the patient received vaccine on and very next day on he started to have some symptoms, which progressively got worse until Monday when he decided to come to the hospital. I will go ahead and start him on IV steroids with this thinking process and we will see how he responds to that. I will see him tomorrow for followup. RINA/MODL Voice ID: [id number] Report ID: [id number] RUEL
[2020-11-05 09:46] VITALS: O2SAT 96
[2020-11-05 09:55] VITALS: BP 109/62; TEMP 98
--- NOTE | 2020-11-06 10:32 | DS ---
Date of Discharge: 11/05/2020 Disposition: Discharged to go home. Physical Examination: HEENT: Unremarkable. Lungs: Clear to auscultation. Heart: Sounds normal. Abdomen: Soft. Bowel sounds normal. No guarding, rigidity, tenderness, or distention. Extremities: No leg edema. Laboratory Data: Upon admission, white count was 12.5, hemoglobin 14.3, platelets 202. Today, white count 10.10, hemoglobin 12.1, platelets 178. His chemistry today; sodium 139, potassium 3.5, chloride 109, bicarb 22, BUN 25, creatinine 1.47, glucose 178, hemoglobin A1c less than 3.5, procalcitonin 3.55 today, yesterday it was 5.68. This was on 11/03/2020. Creatinine was 1.84. Discharge Medications And Instructions: 1. Continue prior home medications except stop irbesartan. 2. Check blood pressure before taking your dose of amlodipine and if systolic blood pressure is less than 130, then do not take dose of amlodipine at that time. 3. Come to office on 11/10/2020 for nonfasting blood test. 4. Follow up at office on 11/11/2020 at 9 a.m. 5. Keep yourself well hydrated with water and Gatorade. 6. Take prednisone as prescribed and prescription was sent to pharmacy for prednisone which is 10 mg tablet. The patient to take 3 tablets daily for 3 days, then 2 tablets daily for 3 days, then 1 tablet daily for 3 days, then stop. Hospital Course: This is an 80-year-old male patient who came into the hospital with fever, chills. Please see dictated H and P for more information. The patient had his first dose of COVID-19 vaccine on October 29, 2020 and he started to have symptoms which has progressively gotten worse from next day on. Please see dictated H and P for more information. After the patient was evaluated, he was admitted to the hospital. There was no definite signs or symptoms of any specific infection to cause underlying fever and chills, but we did start him on empiric antibiotics which is initially Levaquin and subsequently we added ceftriaxone. Urinalysis was unremarkable. Blood culture was done and blood culture has remained negative. The patient had a total of 4 sets of blood culture and all remained negative. On physical exam, from head to toe exam, there was no physical evidence of any area of infection. The patient continued to have intermittent fever throughout this hospitalization. Also resulted in acute kidney injury. IV fluid was given and on 11/04/2020, which is yesterday morning, we decided to start him on IV steroid. From the time of admission, we have been thinking about possibility of side effect from COVID-19 vaccine that he has received and after doing adequate IV antibiotic therapy and lack of definite evidence, we decided to treat him with empiric IV steroid and as predicted, he responded very well and became afebrile and started feeling much better ever since we started him on IV steroid. Today, his renal function is much improved. He is feeling much better. Has a good appetite and ambulating well without any problem now. The patient was discharged to go home in stable condition. I have informed the patient and his that it is my recommendation for him not to get the second dose of COVID-19 vaccine considering the nature of side effects that he had requiring this hospital admission and the patient understands and agrees not to get the second dose and his also agrees with that recommendation. Final Diagnoses: 1. Acute kidney injury. 2. Volume depletion. 3. Fever with chills. 4. Anemia, unspecified. 5. Coronary artery disease. 6. Hypertension. 7. Hyperlipidemia. 8. Gastroesophageal reflux disease. 9. Benign prostatic hypertrophy. 10. Osteoarthritis, multiple sites. RINA/MODL Voice ID: [id number] Report ID: [id number] [email or web address]
== END 2020-11-05 08:57 | disposition home or self-care (01) | DRG 864 ==
LOC: ER 08:43 → ERHOLD 14:21 → 2ND 19:38 → OBSVTOIN 11-03 07:13
PROVIDERS: ADMIT Internal Medicine; ATTEND Internal Medicine
DX: R50.9 Fever, unspecified (principal); N17.9 Acute kidney failure, unspecified; T50.B95A Adverse effect of other viral vaccines, initial encounter; N40.0 Benign prostatic hyperplasia without lower urinary tract symptoms; M19.90 Unspecified osteoarthritis, unspecified site; K21.9 Gastro-esophageal reflux disease without esophagitis; E78.5 Hyperlipidemia, unspecified; I10 Essential (primary) hypertension; E87.6 Hypokalemia; E86.9 Volume depletion, unspecified; I25.2 Old myocardial infarction; D64.9 Anemia, unspecified; I25.10 Atherosclerotic heart disease of native coronary artery without angina pectoris; Z88.8 Allergy status to other drugs, medicaments and biological substances; Z79.82 Long term (current) use of aspirin; Z79.899 Other long term (current) drug therapy; Z95.5 Presence of coronary angioplasty implant and graft; Z20.822 Contact with and (suspected) exposure to COVID-19
CPT/HCPCS: 0240U; 36415; 71045; 71250; 74176; 80048; 80076; 81003; 81015; 82728; 82947; 83036; 83605; 83735; 84145; 85025; 86140; 87040; 87070; 87081; 87086; 87088; 94640; 96361; 96365; 99285; G0378; J0696; J1650; J2930; J7030; J7040; U0003

== ENCOUNTER 2022-05-01 11:22 | Emergency (ER) | payer OTHER ==
--- OUTSIDE RECORDS SUMMARY | 2022-05-01 11:25 | XMS REPORT | Continuity of Care Document ---
:1940 Author Organization [facility] t Address [address] [place] [address] Care Team Providers Name Role Phone Kevin Babak Lynch Primary Care Physician Sen Lane DO Attending Clinician SEN LANE Attending Clinician Unavailable SEN LANE Attending Clinician Unavailable Doctor Unassigned, [place] Attending Clinician Unavailable BERTHA DENNY I Attending Clinician Unavailable Sher Moore Attending Clinician Unavailable Lab, Adc Fam Pob I Attending Clinician Unavailable Sher Moore Admitting Clinician Unavailable Payers Payer Name Policy Type Policy Number Effective Date Expiration Date S [facility] [place] [facility] [id number] 2014 [employer] 00:00:00 MEDICARE PART B - [id number] 2003 2014 MEDICARE 00:00:00 00:00:00 Problems Condition Condition Condition Status Onset Resolution Last Treating Co mments Source Name Details Category Date Date Treatment Clinician Date No known No known Disease Unive rs active active ity of problems problems [facility] Allergies, Adverse Reactions, Alerts Allergy Allergy Status Severity Reaction(s) Onset Inactive Treating Comm ents Source Name Type Date Date Clinician ramipril DA Active U UNKNOWN 2020-09 [facility] 0- [facility]: [address] celecoxi DA Active U UNKNOWN 2020-09 [facility] b 0 00:00: [address] ramipril DA Active U 2020-09 [facility] 0-29 [place] 00:00: [place] [facility] celecoxi DA Active U 2020-09 [facility] b 0-29 [place] 00:00: [place] [facility] Ramipril Drug Active Itching Univers Allergy 05-21 ity of 00:00: [place] [facility] [place] RAMIPRIL DRUG Active Hives Univers INGREDI 05-21 ity of 00:00: [place] [facility] Celecoxi Propensi Active Rash Univer s b ty to 05-25 ity of adverse 00:00: [place] reaction 00 Medical s Branch CELECOXI DRUG Active Hives Univers B INGREDI 05-25 ity of 00:00: [address] Social History Social Habit Start Date Stop Date Quantity Comments Source Exposure to 2022-04-09 2022-04-19 Not sure [facility] SARS-CoV-2 00:00:00 10:28:00 [facility] (event) [place] Tobacco use and 2022-04-19 2022-04-19 Smokeless tobacco Un iversity of exposure 00:00:00 00:00:00 non-user [facility] Sex Assigned At [birth year] Universit y of 00:00:00 00:00:00 [facility] Smoking Status Start Date Stop Date Source Never smoked tobacco [facility] Medications Ordered Filled Start Stop Current Ordering Indication Dosage Frequency Signature Comments Components Source Medication Medication Date Date Medication? Clinician (SIG) Name Name aspirin 81 Yes 1{tbl} Take 1 Uni vers mg Cap 7-26 tablet by ity of 10:38: mouth [place] 31 daily. Medical Branch amLODIPine Yes 2.5mg Take 2.5 Un rigoberto 2.5 mg 7-26 mg by ity of tablet 10:38: mouth [place] 31 daily. Medical Branch loratadine Yes 10mg Take 10 mg U nivers 10 mg 7-26 by mouth ity of tablet 10:38: daily. [address] vitamin C Yes 500mg Take 500 Uni vers with kendal 7-26 mg by ity of hips 250 mg 10:38: mouth [place] tablet 31 daily. Medical Branch Zinc 50 mg Yes 1{tbl} Take 1 Uni vers Tab 7-26 tablet by ity of 10:38: mouth [place] 31 daily. Medical Branch aspirin 81 0 Yes 1{tbl} Take 1 Uni vers mg Cap 7-26 tablet by ity of 10:38: mouth [place] 31 daily. Medical Branch amLODIPine Yes 2.5mg Take 2.5 Un rigoberto 2.5 mg 7-26 mg by ity of tablet 10:38: mouth [place] 31 daily. Medical Branch loratadine 0 Yes 10mg Take 10 mg U nivers 10 mg 7-26 by mouth ity of tablet 10:38: daily. [place] [address] Medical Branch vitamin C 0 Yes 500mg Take 500 Uni vers with kendal 7-26 mg by ity of hips 250 mg 10:38: mouth [place] tablet 31 daily. Medical Branch Zinc 50 mg 0 Yes 1{tbl} Take 1 Uni vers Tab 7-26 tablet by ity of 10:38: mouth [place] 31 daily. Medical Branch aspirin 81 Yes 1{tbl} Take 1 Uni vers mg Cap 7-26 tablet by ity of 10:38: mouth [place] 31 daily. Medical Branch amLODIPine Yes 2.5mg Take 2.5 Un rigoberto 2.5 mg 7-26 mg by ity of tablet 10:38: mouth [place] 31 daily. Medical Branch loratadine 0 Yes 10mg Take 10 mg U nivers 10 mg 7-26 by mouth ity of tablet 10:38: daily. [place] [address] Medical Branch vitamin C 0 Yes 500mg Take 500 Uni vers with kendal 7-26 mg by ity of hips 250 mg 10:38: mouth [place] tablet 31 daily. Medical Branch Zinc 50 mg 2021-0 Yes 1{tbl} Take 1 Uni vers Tab 7-26 tablet by ity of 10:38: mouth [place] 31 daily. Medical Branch nitroglycer [address] 0.4 U nivers in 0.4 mg 3-31 mg under ity of sublingual 11:11: the tongue [place] tablet 11 every 5 Medical (five) Branch minutes as needed for Chest pain. nitroglycer [address] 0.4 U nivers in 0.4 mg 3-31 mg under ity of sublingual 11:11: the tongue [place] tablet 11 every 5 Medical (five) Branch minutes as needed for Chest pain. nitroglycer 2021-[address] 0.4 U nivers in 0.4 mg 3-31 mg under ity of sublingual 11:11: the tongue [place] tablet 11 every 5 Medical (five) Branch minutes as needed for Chest pain. irbesartan 2020-0 Yes 75mg Take 75 mg U nivers 75 mg 8-21 by mouth ity of tablet 00:00: daily. [address] Branch irbesartan 2021-0 Yes 75mg Take 75 mg U nivers 75 mg 8-21 by mouth ity of tablet 00:00: daily. [address] irbesartan 1-0 Yes 75mg Take 75 mg U nivers 75 mg 8-21 by mouth ity of tablet 00:00: daily. [address] atorvastati 2020-0 Yes 10mg Take 10 mg Univers n 10 mg 7-15 by mouth ity of tablet 00:00: daily. [address] atorvastati 2020-0 Yes 10mg Take 10 mg Univers n 10 mg 7-15 by mouth ity of tablet 00:00: daily. [address] atorvastati 2020-0 Yes 10mg Take 10 mg Univers n 10 mg 7-15 by mouth ity of tablet 00:00: daily. [address] omeprazole 2020-0 Yes 20mg Take 20 mg U nivers 20 mg 6-25 by mouth ity of capsule 00:00: daily. [address] omeprazole 2020-0 Yes 20mg Take 20 mg U nivers 20 mg 6-25 by mouth ity of capsule 00:00: daily. [address] omeprazole 2021-0 Yes 20mg Take 20 mg U nivers 20 mg 6-25 by mouth ity of capsule 00:00: daily. [address] amLODIPine 2020-0 Yes 5mg Take 5 mg Un rigoberto 5 mg tablet 6-03 by mouth ity of 00:00: daily. [address] amLODIPine 2021-0 Yes 5mg Take 5 mg Un rigoberto 5 mg tablet 6-03 by mouth ity of 00:00: daily. [address] amLODIPine 1-0 Yes 5mg Take 5 mg Un rigoberto 5 mg tablet 6-03 by mouth ity of 00:00: daily. [place] 00 Medical Branch alfuzosin Yes 1{tbl} Take 1 Univ ers 10 mg 24 hr 5-07 tablet by ity of tablet 00:00: mouth [place] 00 daily. Medical Branch alfuzosin Yes 1{tbl} Take 1 Univ ers 10 mg 24 hr 5-07 tablet by ity of tablet 00:00: mouth [place] 00 daily. Medical Branch alfuzosin Yes 1{tbl} Take 1 Univ ers 10 mg 24 hr 5-07 tablet by ity of tablet 00:00: mouth [place] 00 daily. Medical Branch sildenafiL 2019-09 Yes 100mg Take 100 Un rigoberto 100 mg 1-02 mg by ity of tablet 00:00: mouth as [place] 00 needed. Medical Branch sildenafiL 2019-09 Yes 100mg Take 100 Un rigoberto 100 mg 1-02 mg by ity of tablet 00:00: mouth as 00 needed. Medical Branch sildenafiL 2019-09 Yes 100mg Take 100 Un rigoberto 100 mg 1-02 mg by ity of tablet 00:00: mouth as [place] 00 needed. Medical Branch Vital Signs Vital Name Observation Time Observation Value Comments Source Systolic blood 2022-04-19 15:43:00 115 mm[Hg] Univer sity of pressure [facility] Diastolic blood 2022-04-19 15:43:00 69 mm[Hg] Unive rsity of [facility] Heart rate 2022-04-19 15:43:00 64 /min [facility] Respiratory rate 2022-04-19 15:43:00 19 /min [facility] Body height 2022-04-19 15:43:00 180.3 cm [facility] Body weight 2022-04-19 15:43:00 96.798 kg [facility] BMI 2022-04-19 15:43:00 29.76 kg/m2 [facility] Oxygen saturation in 2022-04-19 15:43:00 95 /min [facility] blood by [facility] Pulse oximetry Branch Procedures Procedure Date / Time Performing Clinician Source Performed DME/SUPPLY JUSTIFICATION 2022-04-19 05:01:00 Doctor Unassigned, No [facility] Name Medical Branch TESTOSTERONE 2022-03-23 15:35:00 [facility] PSA,TOTAL AND FREE 2022-03-23 15:35:00 [facility] Medicine Encounters Start End Encounter Admission Attending Care Care Encounter Source Date/Time Date/Time Type Type Clinicians Facility Department ID 2022-04-19 2022-04-19 Office Shawna [facility] [id number] Univers 10:30:00 11:08:06 Visit Sen ADAMS 350.1.13.10 i ty [facility] 4[place]2.7.2.[place] [phone] Il dical NAL 085 Branch [facility] 2022-04-19 2022-04-[address] [facility] [id number] Univers 10:30:00 11:08:[address] i ty of [facility] 2022-04-19 2022-04-19 Orders Doctor JOSE LUIS [id number] Univers 00:00:00 00:00:00 Only Unassigned, REAL 350.1.13.10 ity of [place] [facility] 4.2.7.2.686 [place] [phone] [place] [address] Branch 2022-03-23 2022-03-23 Outpatient MATTHEW DENNY [facility] [id number] [facility] 14:11:05 14:11:05 BERTHA vela of Medicin e 2021-07-24 2021-07-25 Inpatient ALVAREZ Moore, SHAHRZADWU TELE [id number] [facility] 04:05:00 11:56:00 Nioti 07 [facility] 2021-07-24 2021-07-25 Inpatient EL Karim, HCAWU TELE [id number] [facility] 04:05:00 11:56:00 Nioti [id number] [facility] 2020-08-25 2020-08-25 Laboratory Lab, [facility] [id number] 16:00:38 16:20:38 Only Fam Pob I Health 350.1.13.10 [place] 4.2.7.2.686 Professio [phone] nal 044 Office Building One Results Test Description Test Time Test Comments Results Result Comments Source - XR CHEST 1V 2021-07-25 06:23:00 [facility] : 1940 Sex: M Patient Name: LAVINIA DAVILA Unit No: [id number] EXAMS: CPT CODE: [id number] XR CHEST 1V 89127 Location of dictation: B2 Portable chest one view. HISTORY: S/P PPI COMMENT: Compared to one day prior. 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 Cardiac silhouette is stable. The lungs remain clear. Visualized soft tissues and skeletal structures are unremarkable. There has been no significant changes. IMPRESSION: No active disease in the chest. at 0623 Reported and signed by: Sandy Morgan M.D. CC: Juve Bell MD Technologist: Lacho Darling, RT(R) Transcrpt Date/Tm/Trnsp: 07/25/2021 (0623) [email or web address] Orig Print D/T: S: 07/25/2021 (0626) [facility] NAME: LAVINIA DAVILA [id number] [place] PHYS: [place] [address] : 1940 AGE: 81 SEX: M LOC: Z.[id number] A PHONE #: [phone] EXAM DATE: 07/25/2021 STATUS: ADM IN FAX #: [phone] RADIOLOGY NO: PAGE 1 Signed Report BASIC METABOLIC PANEL 2021-07-25 05:37:00 Test Item Value Reference Range Interpretation Comme nts SODIUM (test code = NA) 137 MMOL/L 137-145 N POTASSIUM (test code = K) 4.1 MMOL/L 3.5-5.1 N CHLORIDE (test code = CL) 109 MMOL/L 98-107 H CARBON DIOXIDE (test code = CO2) 22 MMOL/L 22-30 N GLUCOSE (test code = GLU) 100 MG/DL 74-106 N BLOOD UREA NITROGEN (test code = 18 MG/DL 9-20 N BUN) GLOMERULAR FILTRATION RATE (test > 60 Reporting units: ml/min/1.73 code = GFR) m2 (Modified MD RD Formula)Referen ce Range: > or = 60 ml/min/1.7 3 m2 CREATININE (test code = CREAT) 1.00 MG/DL 0.66-1.25 N CALCIUM (test code = CA) 8.5 MG/DL 8.4-10.2 N CBC W/AUTO [id number] 05:22:00 Test Item Value Reference Range Interpretation Comments WHITE BLOOD CELL (test code = 8.5 K/MM3 3.8-9.8 N WBC) RED BLOOD CELL (test code = 4.37 M/MM3 3.95-5.67 N RBC) HEMOGLOBIN (test code = HGB) 13.2 G/DL 12.4-16.7 N HEMATOCRIT (test code = HCT) 40.6 % 35.9-49.5 N MEAN CELL VOLUME (test code = 93 fL 81.7-96.1 N MCV) MEAN CELL HGB (test code = MCH) 30.2 pg 27.6-33.2 N MEAN CELL HGB CONCETRATION 32.5 % 32.9-35.5 L (test code = MCHC) RED CELL DISTRIBUTION WIDTH 13.1 % 12.1-15.2 N (test code = RDW) PLATELET COUNT (test code = 205 K/MM3 129-368 N PLT) MEAN PLATELET VOLUME (test code 11.2 fl 7.4-10.4 H = MPV) NEUTROPHIL % (test code = NT%) 67.7 % 43-75 N IMMATURE GRANULOCYTE % (test 0.4 % 0.0-2.0 N code = IG%) LYMPHOCYTE % (test code = LY%) 15.3 % 14-44 N MONOCYTE % (test code = MO%) 11.8 % 4-13 N EOSINOPHIL % (test code = EO%) 4.1 % 0-6 N BASOPHIL % (test code = BA%) 0.7 % 0-2 N NUCLEATED RBC % (test code = 0.0 % 0-1.0 N NRBC%) NEUTROPHIL # (test code = NT#) 5.74 K/mm3 2.0-7.6 N IMMATURE GRANULOCYTE # (test 0.03 x10 3/uL 0-0.03 N code = IG#) LYMPHOCYTE # (test code = LY#) 1.30 K/mm3 1.0-3.8 N MONOCYTE # (test code = MO#) 1.00 K/mm3 0.1-0.8 H EOSINOPHIL # (test code = EO#) 0.35 K/mm3 0.0-0.2 H BASOPHIL # (test code = BA#) 0.06 K/mm3 0.0-0.2 N NUCLEATED RBC # (test code = 0.00 K/mm3 0.0-0.1 N NRBC#) - XR CHEST [id number] 11:33:00 [facility] : 1940 Sex: M Patient Name: LAVINIA DAVILA Unit No: [id number] EXAMS: CPT CODE: [id number] XR CHEST 1V 04200 HISTORY: PPI Location: C3 COMPARISON:None FINDINGS: Heart size and vascularity are within normal limits. The lungs are clear of focal consolidation. No effusion, pneumothorax, or acute osseous abnormality. IMPRESSION: 1. No focal consolidation. No other acute abnormalities. Electronically Signed by Lavinia Brennan 07/24/2021 at 1133 Reported and signed by: Lavinia Resendez MD CC: Juve Bell MD Technologist: Cheryl Snyder RT Transcrpt Date/Tm/Trnsp: 07/24/2021 (1133) [email or web address] Orig Print D/T: S: 07/24/2021 (3351) DHARMESH [facility] NAME: LAVINIA DAVILA [id number] [address] PHYS: [place] [address] : 1940 AGE: 81 SEX: M LOC: Z.DC5 B PHONE #: [phone] EXAM DATE: 07/24/2021 STATUS: ADM IN FAX #: [phone] RADIOLOGY NO: PAGE 1 Signed ReportCOMPREHENSIVE METABOLIC PANEL 2021-07-24 07:37:00 Test Item Value Reference Range Interpretation Comments SODIUM (test code 139 MMOL/L 137-145 N = NA) POTASSIUM (test 4.4 MMOL/L 3.5-5.1 N code = K) CHLORIDE (test 107 MMOL/L 98-107 N code = CL) CARBON DIOXIDE 26 MMOL/L 22-30 N (test code = CO2) GLUCOSE (test 102 MG/DL 74-106 N code = GLU) BLOOD UREA 20 MG/DL 9-20 N NITROGEN (test code = BUN) GLOMERULAR > 60 Reporting units : FILTRATION RATE ml/min/1.73 m2 (Modified (test code = GFR) MDRD Formu la)Reference Range: > or = 6 0 ml/min/1.73 m2 CREATININE (test 1.10 MG/DL 0.66-1.25 N code = CREAT) TOTAL PROTEIN 7.0 G/DL 6.2-7.6 N [facility] Clinical Diagnostic (test code = has made us adonis re of PROT) newinformation regarding the potential i nterference ofEltrombopag ( a bone marrow stimulan t used to treatthrombocyt onmenia and aplastic anemia ) with specific assays on the Vitros 5600 of which Total Protein is one of thoseassays per formed in our lab.Interfe rence testing perform ed at Ortho determined that Eltrombopag does interfere with Vitros Total Protein asfollowsEltrom bopag Interference fo r Vitros Product Total Protein:======= Eltrombopag Max Observed Av g. BiasConcentrati on Concentration Concentration== ==== 2.5 mg/dl 6.0 g/dl +0.41 +0.34 3.5 mg/dl 6.0 g /dl +0.50 +0.45 5 mg/dl 6 .0 g/dl +0.73 +0.65 2.5 mg/dl 8.0 g/dl +0.44 +0.4 1 3.5 mg/dl 8.0 g/dl +0.55 +0.52 5 mg/dl 8.0 g/dl +0.86 +0.77 ALBUMIN (test 3.8 G/DL 3.5-5.0 N code = ALB) CALCIUM (test 9.0 MG/DL 8.4-10.2 N code = CA) BILIRUBIN TOTAL 0.6 MG/DL 0.2-1.3 N Eltrombopag Interference (test code = for Vitros Prod uct TBil, BILT) BuBc: Assa y Eltrombopag Emma lyte/ Max Observed Avg. B ias Concentration C oncentration Concentration== ====TBil 7mg/dl TBil/ 1. 2mg/dl +0.23mg.dl +0. 20mg/dlBuBc 3.5mg/dl Bu/0.8 mg/dl +0.25mg/dl +0.2 4mg/dlBuBc 7 mg/dl Bu/14.2mg /dl +0.38mg/dl +0.2 5mg/dlBuBc 5mg/dl Bc/0mg/d l +0.25mg/dl +0.15mg/dlBuBc 3.5mg/dl Bc/2.8mg/dl +0. 25mg/dl +0.23mg/dl SGOT/AST (test 26 UNITS/L 17-59 N code = AST) SGPT/ALT (test 15 UNITS/L 0-49 N code = ALT) ALKALINE 100 UNITS/L 38-126 N PHOSPHATASE (test code = ALKP) LIPID PROFILE (CORONARY RISK)2021-07-24 07:37:00 Test Item Value Reference Range Interpretation Comments TRIGLYCERIDES (test 94 MG/DL 150-199 L TRIGLYCE RIDES code = TRIG) REFERENCE RANGE:Normal: < 150 mg/dLBorderline High: 150-199 mg/dLHi gh: 200-499 mg/dLVe ry High: >=500 mg/ dL CHOLESTEROL (test code 126 MG/DL <200 = CHOL) HDL CHOLESTEROL (test 40 MG/DL 40-59 N code = HDL) LIPOPROTEIN LDL (test 54 MG/DL 0-99 N OPTIM AL.........<100 code = LDL) mg/dLNEAR OPTIMAL/ABOVE OPTIMAL........ .100-12 9 mg/dL BORDERL INE HIGH.........13 0-159 mg/dL HIGH.........16 0-189 mg/dL VERY HIGH.........>/ = 190 mg/dL [id number] 07:37:00 Test Item Value Reference Range Interpretation Comments MAGNESIUM (test code = MAG) 2.4 MG/DL 1.6-2.3 H THYROID STIMULATING [id number] 07:37:00 Test Item Value Reference Range Interpretation Comments THYROID STIMULATING 1.940 MIU/L 0.465-4.68 N Please b e aware that HORMONE (test code = bias re sults for TSH TSH) may occur forpa tient who are taking Biotin suppleme nts. PROTHROMBIN [id number] 07:20:00 Test Item Value Reference Range Interpretation Comments PROTHROMBIN TIME 11.8 SECONDS 9.5-12.7 N PATIENT (test code = PTP) INTERNATIONAL NORMAL 1.1 0.86-1.14 N The INR is to be RATIO (test code = used only for INR) monitoring oral anticoagulantth erap y. INDICATION I NR VALUE ---- ---- ---- -------1. Prophylaxis, de ep venous thrombos is, including high risk surgery. 2.0 - 3.0 2. Prophylaxis, deep venous thrombosis, hip surgery, treatm ent for deep venous thrombosis or pulmonary prevention of systemic emboli sm in patients wit h valvular heart disease, atrial fibrillation, tissue heart va lve, or acute myocar dial infarction. 2.0 - 3.0 3. Broke Handler al prosthesis hear t valves, recurre nt systemic emboli sm. 3.0 - 4.5 PTT [id number] 07:20:00 Test Item Value Reference Range Interpretation Comments PTT ACTIVATED (test code = APTT) 29.0 SECONDS 25.1-36.5 N CBC W/AUTO [id number] 07:04:00 Test Item Value Reference Range Interpretation Comments WHITE BLOOD CELL (test code = 8.5 K/MM3 3.8-9.8 N WBC) RED BLOOD CELL (test code = 4.42 M/MM3 3.95-5.67 N RBC) HEMOGLOBIN (test code = HGB) 13.4 G/DL 12.4-16.7 N HEMATOCRIT (test code = HCT) 41.9 % 35.9-49.5 N MEAN CELL VOLUME (test code = 95 fL 81.7-96.1 N MCV) MEAN CELL HGB (test code = MCH) 30.3 pg 27.6-33.2 N MEAN CELL HGB CONCETRATION 32.0 % 32.9-35.5 L (test code = MCHC) RED CELL DISTRIBUTION WIDTH 13.2 % 12.1-15.2 N (test code = RDW) PLATELET COUNT (test code = 219 K/MM3 129-368 N PLT) MEAN PLATELET VOLUME (test code 10.6 fl 7.4-10.4 H = MPV) NEUTROPHIL % (test code = NT%) 67.3 % 43-75 N IMMATURE GRANULOCYTE % (test 0.2 % 0.0-2.0 N code = IG%) LYMPHOCYTE % (test code = LY%) 17.1 % 14-44 N MONOCYTE % (test code = MO%) 11.3 % 4-13 N EOSINOPHIL % (test code = EO%) 3.4 % 0-6 N BASOPHIL % (test code = BA%) 0.7 % 0-2 N NUCLEATED RBC % (test code = 0.0 % 0-1.0 N NRBC%) NEUTROPHIL # (test code = NT#) 5.69 K/mm3 2.0-7.6 N IMMATURE GRANULOCYTE # (test 0.02 x10 3/uL 0-0.03 N code = IG#) LYMPHOCYTE # (test code = LY#) 1.45 K/mm3 1.0-3.8 N MONOCYTE # (test code = MO#) 0.96 K/mm3 0.1-0.8 H EOSINOPHIL # (test code = EO#) 0.29 K/mm3 0.0-0.2 H BASOPHIL # (test code = BA#) 0.06 K/mm3 0.0-0.2 N NUCLEATED RBC # (test code = 0.00 K/mm3 0.0-0.1 N NRBC#) COVID 19 Asymptomatic IH [id number] 05:21:00 Test Item Value Reference Range Interpretation Comments COVID 19 NEGATIVE Negative "Negative resul ts from Asymptomatic IH AG patients with symptom (test code = onset beyondfiv e days, COVNONPUIAG) should be treat ed as presumptive, andconfirmation with a molecular assay , if necessary forpa tient management may be performed. Nega tive results do notr ule out COVID-19 and sh ould not be used as the sole basisfor treatm ent or patient managem ent decisions, includinginfect ion control decisio ns. Negative result s should beconsidered in the context of a pa tients recent exposure s,history, and the presenc e of clinical signs and symptomsconsist ent with COVID-19.This t est detects both vi able andnon-viable S ARS-CoV and SARS CoV-2. Test performance dep endson the amount of virus (antigen) in the sample." Spec Comments: PRE-OP
[2022-05-01] MEDS ORDERED: BEBTELOVIMAB 175 MG/2 ML VIAL IV ONE (13:36)
--- NOTE | 2022-05-01 14:29 | EDPHYS ---
Physician Documentation [facility] Name: Mendez Bajwa Age: 82 yrs Sex: Male : 1940 Arrival Date: 05/01/2022 Time: 11:23 Bed 6 Private MD: Timothy Brown C ED Physician Johnathon Maddox HPI: 05/01 13:17 This 82 yrs old Male presents to ER via Ambulatory with complaints of covid+ jl9 home test, wants script. Patient c/o fatigue x1 day. Exposure to COVID. . 13:17 Onset: The symptoms/episode began/occurred yesterday. Associated signs and symptoms: jl9 Pertinent positives:. Modifying factors: The patient symptoms are alleviated by nothing, the patient symptoms are aggravated by nothing. The patient has not experienced similar symptoms in the past. Historical: - Allergies: 11:44 Celebrex; bm7 11:44 Ramipril; bm7 - Home Meds: 11:44 alfuzosin 10 mg Oral Tb24 1 tab once daily [Active]; amlodipine 2.5 mg tab PRN bm7 [Active]; aspirin 81 mg Oral chew 1 tab once daily [Active]; Nitroglycerin Oral PRN [Active]; sildenafil 50 Oral [Active]; irbesartan 75 mg Oral tab 1 tab once daily [Active]; atorvastatin 10 mg Oral tab 1 tab once daily [Active]; omeprazole 20 mg Oral TbEC 20 mg daily [Active]; zinc 50 mg Oral tab [Active]; Vitamin D3 2,000 unit Oral cap [Active]; Vitamin C 250 mg Oral tab [Active]; - PMHx: 11:44 CAD; High Cholesterol; enlarged prostate; Hypertension; Myocardial infarction; Sleep bm7 Apnea; - PSHx: 11:44 pacemaker; bm7 - Immunization history:: Adult Immunizations up to date, Client reports receiving the 1st dose of the Covid vaccine, patient states he had a severe reaction to the first immunization . - Social history:: Smoking status: Patient/guardian denies using tobacco products. ROS: 13:19 Constitutional: Negative for fever, chills, and weight loss, Eyes: Negative for injury, jl9 pain, redness, and discharge, ENT: Negative for injury, pain, and discharge, Neck: Negative for injury, pain, and swelling, Cardiovascular: Negative for chest pain, palpitations, and edema, Respiratory: Negative for shortness of breath, cough, wheezing, and pleuritic chest pain, Abdomen/GI: Negative for abdominal pain, nausea, vomiting, diarrhea, and constipation, Back: Negative for injury and pain, : Negative for injury, bleeding, discharge, and swelling, MS/Extremity: Negative for injury and deformity, Skin: Negative for injury, rash, and discoloration. 13:19 Psych: Negative for depression, anxiety, suicide ideation, homicidal ideation, and hallucinations, Allergy/Immunology: Negative for hives, rash, and allergies, Endocrine: Negative for neck swelling, polydipsia, polyuria, polyphagia, and marked weight changes, Hematologic/Lymphatic: Negative for swollen nodes, abnormal bleeding, and unusual bruising. 13:19 Neuro: Positive for weakness. Exam: 13:19 Constitutional: This is a well developed, well nourished patient who is awake, alert, jl9 and in no acute distress. Head/Face: Normocephalic, atraumatic. Eyes: Pupils equal round and reactive to light, extra-ocular motions intact. Lids and lashes normal. Conjunctiva and sclera are non-icteric and not injected. Cornea within normal limits. Periorbital areas with no swelling, redness, or edema. ENT: Mucous membranes moist. Neck: Trachea midline, no thyromegaly or masses palpated, and no cervical lymphadenopathy. Supple, full range of motion without nuchal rigidity, or vertebral point tenderness. No Meningismus. Chest/axilla: Normal chest wall appearance and motion. Nontender with no deformity. No lesions are appreciated. Cardiovascular: Regular rate and rhythm with a normal S1 and S2. No gallops, murmurs, or rubs. Normal PMI, no JVD. No pulse deficits. Respiratory: Lungs have equal breath sounds bilaterally, clear to auscultation and percussion. No rales, rhonchi or wheezes noted. No increased work of breathing, no retractions or nasal flaring. Abdomen/GI: Soft, non-tender, with normal bowel sounds. No distension or tympany. No guarding or rebound. No evidence of tenderness throughout. Back: No spinal tenderness. No costovertebral tenderness. Full range of motion. Skin: Warm, dry with normal turgor. Normal color with no rashes, no lesions, and no evidence of cellulitis. MS/ Extremity: Pulses equal, no cyanosis. Neurovascular intact. Full, normal range of motion. Neuro: Awake and alert, GCS 15, oriented to person, place, time, and situation. Cranial nerves II-XII grossly intact. Motor strength 5/5 in all extremities. Sensory grossly intact. Cerebellar exam normal. Normal gait. Psych: Awake, alert, with orientation to person, place and time. Behavior, mood, and affect are within normal limits. Vital Signs: 11:42 BP 136 / 65; Pulse 76; Resp 18; Temp 97.3(TE); Pulse Ox 98% on R/A; Weight 95.25 kg bm7 (R); Height 5 ft. 11 in. (180.34 cm); Pain 0/10; 13:38 BP 124 / 65; Pulse 74; Resp 16; Pulse Ox 97% on R/A; bm7 14:18 BP 139 / 64; Pulse 76; Resp 16; Temp 97.8(TE); Pulse Ox 98% on R/A; bm7 15:12 BP 134 / 72; Pulse 74; Resp 16; Pulse Ox 98% on R/A; Pain 0/10; bm7 11:42 Body Mass Index 29.29 (95.25 kg, 180.34 cm) bm7 MDM: 11:43 Patient medically screened. 9 13:20 Data reviewed: vital signs, nurses notes, lab test result(s). 9 14:28 Counseling: I had a detailed discussion with the patient and/or guardian regarding: the 9 historical points, exam findings, and any diagnostic results supporting the discharge/admit diagnosis, the need for outpatient follow up, to return to the emergency department if symptoms worsen or persist or if there are any questions or concerns that arise at home. 05/01 11:51 Order name: SARS-COV-2 RT PCR (Document "Date of Onset" if Symptomatic); Complete Time: 9 13:17 Administered Medications: 14:14 Drug: Bebtelovimab 175 mg Route: IV; Rate: bolus; Site: left antecubital; 7 15:13 Follow up: IV Status: Completed infusion bm7 Disposition Summary: 05/01/22 14:28 Discharge Ordered Location: Home 9 Condition: Stable jl9 Diagnosis - SARS-associated coronavirus as the cause of diseases classified elsewhere jl9 Followup: jl9 - With: Private Physician - When: 1 - 2 days - Reason: Recheck today's complaints, Continuance of care, Re-evaluation by your physician Discharge Instructions: - Discharge Summary Sheet jl9 - COVID-19 jl9 - COVID-19: Quarantine vs. Isolation - [facility] jl9 Forms: - Medication Reconciliation Form jl9 - Thank You Letter jl9 - Antibiotic Education jl9 - Prescription Opioid Use jl9 Prescriptions: - hqkqcoyouedxvk-dortcwsmrahq-HG 4-10-20 mg/5 mL Oral liquid - take 5 milliliter by ORAL route every 4-6 hours As needed as needed; 100 jl9 milliliter; Refills: 0, Product Selection Permitted Signatures: Dispatcher [employer] Nilsa Weller RN RN Diego Guy jl9
--- NOTE | 2022-05-01 14:29 | ER ---
Nurse's Notes [facility] Name: Mendez Bajwa Age: 82 yrs Sex: Male : 1940 Arrival Date: 05/01/2022 Time: 11:23 Bed 6 Private MD: Timothy Brown C Diagnosis: SARS-associated coronavirus as the cause of diseases classified elsewhere Presentation: 05/01 11:42 Chief complaint: Patient states: I started coughing yesterday and feeling tired so this bm7 morning I took a home COVID test and it was positive. They told me if I ever tested positive I needed to get started on medication immediately. Coronavirus screen: Client presents with at least one sign or symptom that may indicate coronavirus-19. Standard/surgical mask placed on the client. Ebola Screen: No symptoms or risks identified at this time. Initial Sepsis Screen: Does the patient meet any 2 criteria? No. Patient's initial sepsis screen is negative. Does the patient have a suspected source of infection? No. Patient's initial sepsis screen is negative. Risk Assessment: Do you want to hurt yourself or someone else? Patient reports no desire to harm self or others. Onset of symptoms was April 30, 2022. 11:42 Method Of Arrival: Ambulatory 7 11:42 Acuity: BRYAN 4 bm7 Triage Assessment: 11:44 General: Appears in no apparent distress. comfortable, Behavior is calm, cooperative, bm7 appropriate for age. Pain: Denies pain. EENT: No deficits noted. No signs and/or symptoms were reported regarding the EENT system. Neuro: No deficits noted. Cardiovascular: No deficits noted. Denies chest pain. Respiratory: Reports cough that is non-productive, dry, Denies shortness of breath. GI: No deficits noted. No signs and/or symptoms were reported involving the gastrointestinal system. : No deficits noted. No signs and/or symptoms were reported regarding the genitourinary system. Derm: No deficits noted. No signs and/or symptoms reported regarding the dermatologic system. Musculoskeletal: No deficits noted. No signs and/or symptoms reported regarding the musculoskeletal system. Historical: - Allergies: 11:44 Celebrex; bm7 11:44 Ramipril; bm7 - Home Meds: 11:44 alfuzosin 10 mg Oral Tb24 1 tab once daily [Active]; amlodipine 2.5 mg tab PRN bm7 [Active]; aspirin 81 mg Oral chew 1 tab once daily [Active]; Nitroglycerin Oral PRN [Active]; sildenafil 50 Oral [Active]; irbesartan 75 mg Oral tab 1 tab once daily [Active]; atorvastatin 10 mg Oral tab 1 tab once daily [Active]; omeprazole 20 mg Oral TbEC 20 mg daily [Active]; zinc 50 mg Oral tab [Active]; Vitamin D3 2,000 unit Oral cap [Active]; Vitamin C 250 mg Oral tab [Active]; - PMHx: 11:44 CAD; High Cholesterol; enlarged prostate; Hypertension; Myocardial infarction; Sleep bm7 Apnea; - PSHx: 11:44 pacemaker; bm7 - Immunization history:: Adult Immunizations up to date, Client reports receiving the 1st dose of the Covid vaccine, patient states he had a severe reaction to the first immunization . - Social history:: Smoking status: Patient/guardian denies using tobacco products. Screenin:02 Abuse screen: Denies threats or abuse. Nutritional screening: No deficits noted. bm7 Tuberculosis screening: No symptoms or risk factors identified. Fall Risk None identified. Assessment: 12:02 Reassessment: No changes from previously documented assessment. bm7 12:38 Reassessment: Patient and/or family updated on plan of care and expected duration. Pain bm7 level reassessed. Patient is alert, oriented x 3, equal unlabored respirations, skin warm/dry/pink. 14:14 Reassessment: Patient and/or family updated on plan of care and expected duration. Pain bm7 level reassessed. Patient is alert, oriented x 3, equal unlabored respirations, skin warm/dry/pink. 14:41 Reassessment: Patient and/or family updated on plan of care and expected duration. Pain bm7 level reassessed. Patient is alert, oriented x 3, equal unlabored respirations, skin warm/dry/pink. Vital Signs: 11:42 BP 136 / 65; Pulse 76; Resp 18; Temp 97.3(TE); Pulse Ox 98% on R/A; Weight 95.25 kg bm7 (R); Height 5 ft. 11 in. (180.34 cm); Pain 0/10; 13:38 BP 124 / 65; Pulse 74; Resp 16; Pulse Ox 97% on R/A; bm7 14:18 BP 139 / 64; Pulse 76; Resp 16; Temp 97.8(TE); Pulse Ox 98% on R/A; bm7 15:12 BP 134 / 72; Pulse 74; Resp 16; Pulse Ox 98% on R/A; Pain 0/10; bm7 11:42 Body Mass Index 29.29 (95.25 kg, 180.34 cm) bm7 ED Course: 11:23 Patient arrived in ED. as 11:24 Timothy Brown MD is Private Physician. as 11:42 Nilsa Che, RN is Primary Nurse. bm7 11:42 Diego Mathews is [facility]. jl9 11:42 Johnathon Maddox MD is Attending Physician. jl9 11:44 Triage completed. bm7 11:44 Arm band placed on right wrist. bm7 12:02 No apparent distress. Resting quietly. Awaiting lab results. bm7 12:02 Patient has correct armband on for positive identification. Placed in gown. Bed in low bm7 position. Call light in reach. Side rails up X 1. Adult w/ patient. Client placed on continuous cardiac and pulse oximetry monitoring. NIBP monitoring applied. Warm blanket given. 12:02 No provider procedures requiring assistance completed. COVID swab sent to lab. Patient bm7 maintains SpO2 saturation greater than 95% on room air. 13:38 Inserted saline lock: 20 gauge in left hand, using aseptic technique. bm7 15:12 IV discontinued, intact, bleeding controlled, No redness/swelling at site. Pressure bm7 dressing applied. Administered Medications: 14:14 Drug: Bebtelovimab 175 mg Route: IV; Rate: bolus; Site: left antecubital; bm7 15:13 Follow up: IV Status: Completed infusion bm7 Medication: 12:02 VIS not applicable for this client. bm7 Outcome: 14:28 Discharge ordered by . jl9 15:12 Discharged to home ambulatory, with family. bm7 15:12 Condition: improved 15:12 Discharge instructions given to patient, family, Instructed on discharge instructions, follow up and referral plans. medication usage, Demonstrated understanding of instructions, follow-up care, medications, Prescriptions given X 1. 15:13 Patient left the ED. bm7 Signatures: Yee Bowens Brittany, RN RN bm7 Diego Mathews jl9
[2022-05-01 15:55] VITALS: TEMP 97.8; O2SAT 98
[2022-05-01 15:56] VITALS: BP 134/72
== END 2022-05-01 15:13 | disposition home or self-care (01) ==
LOC: ER 11:22
DX: U07.1 COVID-19 (principal); E78.00 Pure hypercholesterolemia, unspecified; I10 Essential (primary) hypertension; Z95.0 Presence of cardiac pacemaker; Z88.6 Allergy status to analgesic agent; Z88.8 Allergy status to other drugs, medicaments and biological substances
CPT/HCPCS: 96365; 99284; U0003

== ENCOUNTER 2022-05-12 12:45 | Emergency (ER) | payer OTHER ==
--- OUTSIDE RECORDS SUMMARY | 2022-05-12 12:48 | XMS REPORT | Continuity of Care Document ---
:1940 Author Organization [facility] t Address [address] [place] [address] Care Team Providers Name Role Phone Kevin Babak Lynch Primary Care Physician Sen Lane DO Attending Clinician SEN LANE Attending Clinician Unavailable SEN LANE Attending Clinician Unavailable Doctor Unassigned, Kennard Attending Clinician Unavailable BERTHA DENNY I Attending Clinician Unavailable Sher Moore Attending Clinician Unavailable Lab, Adc Fam Pob I Attending Clinician Unavailable Sher Moore Admitting Clinician Unavailable Payers Payer Name Policy Type Policy Number Effective Date Expiration Date S [facility] MEDICARE PLAN [facility] [id number] 2014 [employer] 00:00:00 MEDICARE PART B - [id number] 2003 2014 MEDICARE 00:00:00 00:00:00 Problems Condition Condition Condition Status Onset Resolution Last Treating Co mments Source Name Details Category Date Date Treatment Clinician Date No known No known Disease Unive rs active active ity of problems problems [facility] Allergies, Adverse Reactions, Alerts Allergy Allergy Status Severity Reaction(s) Onset Inactive Treating Comm ents Source Name Type Date Date Clinician ramipril DA Active U UNKNOWN 2020-09 [facility] 0- 00:[facility]: [address] celecoxi DA Active U UNKNOWN 2020-09 [facility] b 0 00:00: [address] ramipril DA Active U 2020-09 [facility] 0-29 [facility] 00:00: [facility] celecoxi DA Active U 2020-09 [facility] b 0-29 [place] 00:00: [facility] Ramipril Drug Active Itching Univers Allergy 05-21 ity of 00:00: [facility] RAMIPRIL DRUG Active Hives Univers INGREDI 05-21 ity of 00:00: [facility] Celecoxi Propensi Active Rash Univer s b ty to 05-25 ity of adverse 00:00: [place] reaction 00 Medical s Branch CELECOXI DRUG Active Hives Univers B INGREDI 05-25 ity of 00:00: [address] Social History Social Habit Start Date Stop Date Quantity Comments Source Exposure to 2022-04-09 2022-04-19 Not sure [facility] SARS-CoV-2 00:00:00 10:28:00 [facility] (event) [facility] [place] Tobacco use and 2022-04-19 2022-04-19 Smokeless tobacco Un iversity of exposure 00:00:00 00:00:00 non-user [facility] Sex Assigned At [birth year] Universit y of 00:00:00 00:00:00 [facility] Smoking Status Start Date Stop Date Source Never smoked tobacco [facility] Medications Ordered Filled Start Stop Current Ordering [...] by mouth ity of tablet 10:38: daily. [address] vitamin C Yes 500mg Take 500 [...] by mouth ity of tablet 10:38: daily. [place] [address] Medical Branch vitamin C 0 Yes 500mg [...] by mouth ity of tablet 10:38: daily. [place] [address] Medical Branch vitamin C 0 Yes 500mg [...] by mouth ity of tablet 00:00: daily. [address] Branch irbesartan 2021-0 Yes 75mg Take 75 mg U nivers 75 mg 8-21 by mouth ity of tablet 00:00: daily. [address] irbesartan 1-0 Yes 75mg Take 75 mg U nivers 75 mg 8-21 by mouth ity of tablet 00:00: daily. [address] atorvastati 2020-0 Yes 10mg Take 10 mg Univers n 10 mg 7-15 by mouth ity of tablet 00:00: daily. [address] atorvastati 2020-0 Yes 10mg Take 10 mg Univers n 10 mg 7-15 by mouth ity of tablet 00:00: daily. [address] atorvastati 2020-0 Yes 10mg Take 10 mg Univers n 10 mg 7-15 by mouth ity of tablet 00:00: daily. [address] omeprazole 2020-0 Yes 20mg Take 20 mg U nivers 20 mg 6-25 by mouth ity of capsule 00:00: daily. [address] omeprazole 2020-0 Yes 20mg Take 20 mg U nivers 20 mg 6-25 by mouth ity of capsule 00:00: daily. [address] omeprazole 2021-0 Yes 20mg Take 20 mg U nivers 20 mg 6-25 by mouth ity of capsule 00:00: daily. [address] amLODIPine 2020-0 Yes 5mg Take 5 mg Un rigoberto 5 mg tablet 6-03 by mouth ity of 00:00: daily. [address] amLODIPine 2021-0 Yes 5mg Take 5 mg Un rigoberto 5 mg tablet 6-03 by mouth ity of 00:00: daily. [address] amLODIPine 1-0 Yes 5mg Take 5 [...] 15:43:00 115 mm[Hg] Univer sity of pressure [facility] Diastolic blood 2022-04-19 15:43:00 69 mm[Hg] Unive rsity of [facility] Heart rate 2022-04-19 15:43:00 64 /min [facility] Respiratory rate 2022-04-19 15:43:00 19 /min [facility] Body height 2022-04-19 15:43:00 180.3 cm [facility] Body weight 2022-04-19 15:43:00 96.798 kg [facility] BMI 2022-04-19 15:43:00 29.76 kg/m2 [facility] Oxygen saturation in 2022-04-19 15:43:00 95 /min [facility] blood by [facility] Pulse oximetry Branch Procedures Procedure Date / Time Performing Clinician Source Performed DME/SUPPLY JUSTIFICATION 2022-04-19 05:01:00 Doctor Unassigned, No University [facility] Name Medical Branch TESTOSTERONE 2022-03-23 15:35:00 [facility] Medicine PSA,TOTAL AND FREE 2022-03-23 15:35:00 [facility] Medicine Encounters Start End Encounter Admission Attending Care Care Encounter Source Date/Time Date/Time Type Type Clinicians Facility Department ID 2022-04-19 2022-04-19 Office Shawna [facility] [id number] Univers 10:30:00 11:08:06 Visit Sen ADAMS [id number] i ty [facility] [id number] PROF[place] [id number] Ma dical NAL 085 Branch [facility] 2022-04-19 2022-04-[address] [facility] [id number] Univers 10:30:00 11:08:[address] i ty of [facility] 2022-04-19 2022-04-19 Orders Doctor JOSE LUIS [id number] Univers 00:00:00 00:00:00 Only Unassigned, REAL [id number] ity of [place] [facility] [id number] [place] [phone] [place] [address] Branch 2022-03-23 2022-03-23 Outpatient MATTHEW DENNY [facility] [id number] [facility] 14:11:05 14:11:05 BERTHA vela of Medicin e 2021-07-24 2021-07-25 Inpatient ALVAREZ Moore, SHAHRZADWU TELE [id number] [facility] 04:05:00 11:56:00 Nioti 07 [facility] 2021-07-24 2021-07-25 Inpatient EL Karim, HCAWU TELE [id number] [facility] 04:05:00 11:56:00 Nioti [id number] [facility] 2020-08-25 2020-08-25 Laboratory Lab, [facility] [id number] 16:00:38 16:20:38 Only Fam Pob I Health [id number] [place] 4.2.7.2.686 Professio [phone] nal 044 Office [address] One Results Test Description Test Time Test Comments Results Result Comments Source - XR CHEST 1V 2021-07-25 06:23:00 [facility] : 1940 Sex: M Patient Name: LAVINIA DAVILA Unit No: [id number] EXAMS: CPT CODE: [id number] XR CHEST 1V 08960 Location of dictation: B2 Portable chest one [...] [email or web address] Orig Print D/T: S: 07/25/2021 (0626) [facility] NAME: LAVINIA DAVILA [address] [address] PHYS: Ju[place] [address] : 1940 AGE: 81 SEX: M LOC: Z.358 A PHONE #: [phone] EXAM DATE: 07/25/2021 STATUS: ADM IN FAX #: [phone] RADIOLOGY NO: PAGE 1 Signed Report BASIC [...] CA) 8.5 MG/DL 8.4-10.2 N CBC W/AUTO [id number] 05:22:00 Test Item Value Reference Range Interpretation [...] K/mm3 0.0-0.1 N NRBC#) - XR CHEST [id number] 11:33:00 [facility] : 1940 Sex: M Patient Name: LAVINIA DAVILA Unit No: [id number] EXAMS: CPT CODE: [id number] XR CHEST 1V 31681 HISTORY: PPI Location: C3 COMPARISON:None FINDINGS: Heart [...] (1133) [email or web address] Orig Print D/T: S: 07/24/2021 (6005) DHARM[facility] NAME: LAVINIA DAVILA [id number] PHYS: [place] [address] : 1940 AGE: 81 SEX: M LOC: [id number].DC5 B PHONE #: [phone] EXAM DATE: 07/24/2021 STATUS: ADM IN FAX #: [phone] RADIOLOGY NO: PAGE 1 Signed ReportCOMPREHENSIVE METABOLIC [...] 0-189 mg/dL VERY HIGH.........>/ = 190 mg/dL [id number] 07:37:00 Test Item Value Reference Range Interpretation Comments MAGNESIUM (test code = MAG) 2.4 MG/DL 1.6-2.3 H THYROID STIMULATING [id number] 07:37:00 Test Item Value Reference Range Interpretation Comments THYROID STIMULATING 1.940 MIU/L 0.465-4.68 N Please b e aware that HORMONE (test code = bias re sults for TSH TSH) may occur forpa tient who are taking Biotin suppleme nts. PROTHROMBIN [id number] 07:20:00 Test Item Value Reference Range Interpretation [...] myocar dial infarction. 2.0 - 3.0 3. [employer] Supervisor al prosthesis hear t valves, recurre nt systemic emboli sm. 3.0 - 4.5 PTT [id number] 07:20:00 Test Item Value Reference Range Interpretation Comments PTT ACTIVATED (test code = APTT) 29.0 SECONDS 25.1-36.5 N CBC W/AUTO [id number] 07:04:00 Test Item Value Reference Range Interpretation [...] 0.0-0.1 N NRBC#) COVID 19 Asymptomatic IH [id number] 05:21:00 Test Item Value Reference Range Interpretation [...]
--- NOTE | 2022-05-12 13:48 | RAD REPORT ---
EXAM DESCRIPTION: RAD - Chest Pa And Lat (2 Views) - 05/12/2022 1:42 pm CLINICAL HISTORY: COUGH Chest pain. COMPARISON: Chest Single View dated 11/02/2020; Chest Single View dated 05/23/2017; Chest Single View d ated 05/12/2017; Chest Single View dated 05/09/2017 FINDINGS: Interstitial markings are mildly prominent bilaterally. This may indicate a viral infectio n. The heart is normal in size. Dual lead pacer device is present.
[2022-05-12 13:49] LABS: Absolute Lymphocytes (CBC) 1.2 K/uL (0.7-4.9); Hematocrit 41.2 % (39.6-49.0); Lymphocytes % 23.6 % (15.3-44.8); MCV 91.3 fL (80-100); MPV 8.5 fL (7.6-11.3); RBC Red Blood Cell Count 4.52 M/uL (4.33-5.43)
[2022-05-12 13:58] LABS: Potassium 4.3 mmol/L (3.5-5.1)
--- NOTE | 2022-05-12 14:25 | RAD REPORT ---
EXAM DESCRIPTION: CT - Chest For Pe Angio - 05/12/2022 2:15 pm CLINICAL HISTORY: Chest pain. Chest pain COMPARISON: Chest Abd Pelvis Wo Con dated 11/03/2020 TECHNIQUE: CT angiogram of the pulmonary arteries was performed with MIP. All CT scans are performed using dose optimization technique as appropriate and may include automated exposure control or mA/KV adjustment according to patient size. FINDINGS: No evidence of pulmonary thromboembolism. No acute aortic finding demonstrated. The lungs are clear. Pacer device is noted. No significant pericardial or pleural fluid. No concerning bony finding. IMPRESSION: No evidence of pulmonary thromboembolism. No acute lung findings.
--- NOTE | 2022-05-12 14:39 | EDPHYS ---
Physician Documentation [facility] Name: Mendez Bajwa Age: 82 yrs Sex: Male : 1940 Arrival Date: 05/12/2022 Time: 12:47 Bed 14 Private MD: Timothy Brown C ED Physician Johnathon Maddox HPI: 05/12 13:33 This 82 yrs old Male presents to ER via Ambulatory with complaints of Cough. kb 13:33 The patient or guardian reports cough, difficulty breathing. Onset: The kb symptoms/episode began/occurred 12 day(s) ago. Severity of symptoms: At their worst the symptoms were moderate, in the emergency department the symptoms are unchanged. Modifying factors: The symptoms are alleviated by nothing, the symptoms are aggravated by nothing. Associated signs and symptoms: The patient has no apparent associated signs or symptoms. The patient has not experienced similar symptoms in the past. The patient has not recently seen a physician. Pt reports he was diagnosed with COVID 12 days ago and has a persistent, productive cough. States he is on his second z-pack. Called Dr Brown this morning and was told to come to the ER to have lungs evaluated. States he gets short of breath with exertion as well. . Historical: - Allergies: 13:07 Celebrex; ss 13:07 Ramipril; ss - PMHx: 13:07 Myocardial infarction; Hypertension; High Cholesterol; enlarged prostate; Sleep Apnea; ss CAD; - PSHx: 13:07 pacemaker; ss - Immunization history:: Client reports receiving the 1st dose of the Covid vaccine. - Social history:: Smoking status: Patient denies any tobacco usage or history of. ROS: 13:33 Constitutional: Negative for fever, chills, and weight loss. kb 13:33 Respiratory: Positive for cough, with yellow sputum, dyspnea on exertion, Negative for hemoptysis, orthopnea, pleurisy, shortness of breath, wheezing. 13:33 All other systems are negative. Exam: 13:33 Constitutional: This is a well developed, well nourished patient who is awake, alert, kb and in no acute distress. Head/Face: Normocephalic, atraumatic. ENT: Moist Mucous membranes Cardiovascular: Regular rate and rhythm with a normal S1 and S2. No gallops, murmurs, or rubs. No pulse deficits. Respiratory: Respirations even and unlabored. No increased work of breathing. Talking in full sentences Abdomen/GI: Soft, non-tender. No distention Skin: Warm, dry with normal turgor. Normal color. MS/ Extremity: Pulses equal, no cyanosis. Neurovascular intact. Full, normal range of motion. Neuro: Awake and alert, GCS 15, oriented to person, place, time, and situation. Moves all extremities. Normal gait. Psych: Awake, alert, with orientation to person, place and time. Behavior, mood, and affect are within normal limits. Vital Signs: 13:07 BP 133 / 93; Pulse 59; Resp 16; Pulse Ox 99% on R/A; Pain 0/10; ss 13:09 Temp 97.6(TE); ss 13:10 Weight 94.35 kg; Height 5 ft. 11 in. (180.34 cm); ss 13:10 Body Mass Index 29.01 (94.35 kg, 180.34 cm) ss MDM: 13:11 Patient medically screened. kb 13:33 Data reviewed: vital signs, nurses notes. Data interpreted: Pulse oximetry: on room air kb is 99 %. Interpretation: normal. 14:38 Counseling: I had a detailed discussion with the patient and/or guardian regarding: the kb historical points, exam findings, and any diagnostic results supporting the discharge/admit diagnosis, lab results, radiology results, the need for outpatient follow up, a family practitioner, to return to the emergency department if symptoms worsen or persist or if there are any questions or concerns that arise at home. 05/12 13:12 Order name: CBC with Diff; Complete Time: 14:02 kb 05/12 13:12 Order name: Basic Metabolic Panel; Complete Time: 14:02 kb 05/12 13:12 Order name: D-Dimer; Complete Time: 14:02 kb 05/12 13:12 Order name: IV Start; Complete Time: 13:39 kb 05/12 13:12 Order name: Chest Pa And Lat (2 Views) XRAY; Complete Time: 14:02 kb 05/12 14:00 Order name: CT Chest For PE Angio; Complete Time: 14:26 eb Administered Medications: No medications were administered Disposition Summary: 05/12/22 14:38 Discharge Ordered Location: Home kb Condition: Stable kb Diagnosis - Cough kb Followup: kb - With: Emergency Department - When: As needed - Reason: Worsening of condition Followup: kb - With: Timothy Brown MD - When: 2 - 3 days - Reason: Recheck today's complaints, Continuance of care, Re-evaluation by your physician Discharge Instructions: - Discharge Summary Sheet kb - Cough, Adult, [id number] kb Forms: - Medication Reconciliation Form kb - Thank You Letter kb - Antibiotic Education kb - Prescription Opioid Use kb Signatures: Dispatcher [employer] EDMS Deloris Santiago, AYALA CHACON-Padmaja Oakley, RN RN ss Chante Whitaker RN RN jh5
--- NOTE | 2022-05-12 14:39 | ER ---
Nurse's Notes [facility] Name: Mendez Bajwa Age: 82 yrs Sex: Male : 1940 Arrival Date: 05/12/2022 Time: 12:47 Bed 14 Private MD: Timothy Brown C Diagnosis: Cough Presentation: 05/12 13:06 Chief complaint: Patient states: Sent by Dr. Brown for further evaluation of cough. DX ss with COVID last week. Coronavirus screen: Client presents with at least one sign or symptom that may indicate coronavirus-19. Ebola Screen: Patient denies exposure to infectious person. Patient denies travel to an Ebola-affected area in the 21 days before illness onset. Initial Sepsis Screen: Does the patient meet any 2 criteria? No. Patient's initial sepsis screen is negative. Does the patient have a suspected source of infection? No. Patient's initial sepsis screen is negative. Risk Assessment: Do you want to hurt yourself or someone else? Patient reports no desire to harm self or others. Onset of symptoms was April 2022. 13:06 Method Of Arrival: Ambulatory ss 13:06 Acuity: BRYAN 3 ss Triage Assessment: 13:40 General: Appears in no apparent distress. Behavior is calm, cooperative, appropriate jh5 for age. Historical: - Allergies: 13:07 Celebrex; ss 13:07 Ramipril; ss - PMHx: 13:07 Myocardial infarction; Hypertension; High Cholesterol; enlarged prostate; Sleep Apnea; ss CAD; - PSHx: 13:07 pacemaker; ss - Immunization history:: Client reports receiving the 1st dose of the Covid vaccine. - Social history:: Smoking status: Patient denies any tobacco usage or history of. Screenin:39 Abuse screen: Denies threats or abuse. Denies injuries from another. Nutritional jh5 screening: No deficits noted. Tuberculosis screening: No symptoms or risk factors identified. Fall Risk None identified. Vital Signs: 13:07 BP 133 / 93; Pulse 59; Resp 16; Pulse Ox 99% on R/A; Pain 0/10; ss 13:09 Temp 97.6(TE); ss 13:10 Weight 94.35 kg; Height 5 ft. 11 in. (180.34 cm); ss 13:10 Body Mass Index 29.01 (94.35 kg, 180.34 cm) ED Course: 12:47 Patient arrived in ED. mr 12:47 Timothy Brwon MD is Private Physician. mr 13:00 Deloris Santiago [facility]C [facility]. kb 13:00 Johnathon Maddox MD is Attending Physician. kb 13:07 Triage completed. 13:07 Arm band placed on right wrist. 13:12 Chante Whitaker, RN is Primary Nurse. 5 13:39 Patient has correct armband on for positive identification. Side rails up X2. Adult w/ jh5 patient. 13:39 Inserted saline lock: 20 gauge in right antecubital area, using aseptic technique. jh5 13:39 D-Dimer Sent. jh5 13:39 Basic Metabolic Panel Sent. jh5 13:39 CBC with Diff Sent. jh5 13:39 No provider procedures requiring assistance completed. jh5 13:44 Chest Pa And Lat (2 Views) XRAY In Process Unspecified. EDMS 14:17 CT Chest For PE Angio In Process Unspecified. EDMS 14:38 Timothy Brown MD is Referral Physician. kb Administered Medications: No medications were administered Medication: 15:01 VIS not applicable for this client. 5 Outcome: 14:38 Discharge ordered by . kb 15:00 Discharged to home ambulatory, with family. 5 15:00 Condition: good 15:00 Discharge instructions given to patient. 15:02 Patient left the ED. 5 Signatures: Dispatcher [employer] EDMS Deloris Santiago FNP-C FNP-Bladimir Estrella Pena Padmaja Alvarado, TRINH RN Chante Whitaker, TRINH RN [facility]
== END 2022-05-12 15:02 | disposition home or self-care (01) ==
LOC: ER 12:45
DX: R05.9 Cough, unspecified (principal); I10 Essential (primary) hypertension; Z95.0 Presence of cardiac pacemaker; Z88.8 Allergy status to other drugs, medicaments and biological substances
CPT/HCPCS: 85025; 80048; 36415; 85379; 71275; 71046; 99283; Q9967

== ENCOUNTER 2022-08-10 16:38 | Emergency (ER) | payer OTHER ==
--- OUTSIDE RECORDS SUMMARY | 2022-08-10 16:42 | XMS REPORT | Continuity of Care Document ---
:1940 Author Organization [facility] t Address [address] [place] [address] Care Team Providers Name Role Phone Kevin Babak Lynch Primary Care Physician SEN LAEN Attending Clinician Unavailable SEN LANE Attending Clinician Unavailable Sen Lane DO Attending Clinician Doctor Unassigned, [place] Attending Clinician Unavailable BERTHA DENNY I Attending Clinician Unavailable Sher Moore Attending Clinician Unavailable RACHNA RAJPUT Attending Clinician Unavailable RACHNA RAJPUT Attending Clinician Unavailable 1, [facility] Sleep Lab Bed Attending Clinician Unavailable Rachna Rajput MD Attending Clinician Only, [facility] Test Attending Clinician Unavailable Yong Ron MD Attending Clinician NATE UGARTE Attending Clinician Unavailable Nate Ugarte MD Attending Clinician Lab, [facility] Fam Pob I Attending Clinician Unavailable Orlando Austin Attending Clinician ORLANDO BRADFORD Attending Clinician Unavailable Sher Moore Admitting Clinician Unavailable Payers Payer Name Policy Type Policy Number Effective Date Expiration Date Kaela davis [employer] MANAGED [id number] 2020 MEDICARE PPO-NADEGE 00:00:00 MEDICARE PLAN PPO [id number] 2014 - [employer] 00:00:00 MEDICARE PART B - [id number] 2014 MEDICARE 00:00:00 00:00:00 Problems Condition Condition Condition Status Onset Resolution Last Treating Co mments Source Name Details Category Date Date Treatment Clinician Date No known No known Disease Unive rs active active ity of problems problems [facility] Allergies, Adverse Reactions, Alerts Allergy Allergy Status Severity Reaction(s) Onset Inactive Treating Comm ents Source Name Type Date Date Clinician ramipril DA Active U UNKNOWN 2020-09 [facility] 0- 00:00: [address] celecoxi DA Active U UNKNOWN 2020-09 [facility] b 0 00:00: [address] ramipril DA Active U 2020-09 [facility] 0 00:00: [address] celecoxi DA Active U 2020-09 [facility] b 0 00:00: [address] Ramipril Drug Active Itching Univers Allergy 8-27 ity of 00:00: [place] [facility] RAMIPRIL DRUG Active Hives Univers INGREDI 8-27 ity of 00:00: [address] Celecoxi Propensi Active Rash Univer s b ty to 8-31 ity of adverse 00:00: [place] reaction 00 [facility] [place] CELECOXI DRUG Active Hives Univers B INGREDI 8-31 ity of 00:00: [address] Social History Social Habit Start Date Stop Date Quantity Comments Source Exposure to 2022-04-09 2022-04-19 Not sure University SARS-CoV-2 00:00:00 10:28:00 [facility] (event) [place] Tobacco use and 2022-04-19 2022-04-19 Smokeless tobacco Un iversity of exposure 00:00:00 00:00:00 non-user [facility] Sex Ass[birth year] Universit y of 00:00:00 00:00:00 [facility] Smoking Status Start Date Stop Date Source Never smoked tobacco [facility] Medications Ordered Filled Start Stop Current Ordering [...] by mouth ity of tablet 10:38: daily. [place] [address] Medical Branch vitamin C Yes 500mg Take 500 Uni [...] by mouth ity of tablet 10:38: daily. [place] [address] Medical Branch vitamin C Yes 500mg Take 500 Uni [...] by mouth ity of tablet 10:38: daily. [place] [address] Medical Branch vitamin C 2022-0 Yes 500mg Take 500 Uni vers with kendal 7-26 mg by ity of hips 250 mg 10:38: mouth [place] tablet 31 daily. Medical Branch Zinc 50 mg 2021-0 Yes 1{tbl} Take 1 Uni vers Tab 7-26 tablet by ity of 10:38: mouth [place] 31 daily. Medical Branch nitroglycer 2021-[address] 0.4 U [...] by mouth ity of tablet 00:00: daily. [address] irbesartan 2020-0 Yes 75mg Take 75 mg U nivers 75 mg 8-21 by mouth ity of tablet 00:00: daily. [address] irbesartan 2020-0 Yes 75mg Take 75 mg U nivers 75 mg 8-21 by mouth ity of tablet 00:00: daily. [address] Branch atorvastati 2020-0 Yes 10mg Take 10 mg Univers n 10 mg 7-15 by mouth ity of tablet 00:00: daily. [address] atorvastati 2020-0 Yes 10mg Take 10 mg Univers n 10 mg 7-15 by mouth ity of tablet 00:00: daily. [address] atorvastati 2020-0 Yes 10mg Take 10 mg Univers n 10 mg 7-15 by mouth ity of tablet 00:00: daily. [address] omeprazole 2020-0 Yes 20mg Take 20 mg U nivers 20 mg 6-25 by mouth ity of capsule 00:00: daily. [address] omeprazole 2020-0 Yes 20mg Take 20 mg U nivers 20 mg 6-25 by mouth ity of capsule 00:00: daily. Medical Branch omeprazole 2020-0 Yes 20mg Take 20 mg U nivers 20 mg 6-25 by mouth ity of capsule 00:00: daily. Medical Branch amLODIPine 2020-0 Yes 5mg Take 5 mg Un rigoberto 5 mg tablet 6-03 by mouth ity of 00:00: daily. Medical Branch amLODIPine 2020-0 Yes 5mg Take 5 mg Un rigoberto 5 mg tablet 6-03 by mouth ity of 00:00: daily. Medical Branch amLODIPine 2020-0 Yes 5mg Take 5 mg Un rigoberto 5 mg tablet 6-03 by mouth ity of 00:00: daily. Medical Branch alfuzosin 2020-0 Yes 1{tbl} Take 1 Univ ers 10 mg 24 hr 5-07 tablet by ity of tablet 00:00: mouth 00 daily. Medical Branch alfuzosin 2020-0 Yes 1{tbl} Take 1 Univ ers 10 mg 24 hr 5-07 tablet by ity of tablet 00:00: mouth 00 daily. Medical Branch alfuzosin 2020-0 Yes 1{tbl} Take 1 Univ ers 10 mg 24 hr 5-07 tablet by ity of tablet 00:00: mouth daily. Medical Branch sildenafiL 2019-1 Yes 100mg Take 100 Un rigoberto 100 mg 1-02 mg by ity of tablet 00:00: mouth as 00 needed. Medical Branch sildenafiL 2019-1 Yes 100mg Take 100 Un rigoberto 100 mg 1-02 mg by ity of tablet 00:00: mouth as needed. Medical Branch sildenafiL 2019-1 Yes 100mg Take 100 Un rigoberto 100 mg 1-02 mg by ity of tablet 00:00: mouth as 00 needed. Medical Branch Vital Signs Vital Name Observation Time Observation Value Comments Source Systolic blood 2022-04-19 15:43:00 115 mm[Hg] Univer sity of pressure [facility] Diastolic blood 2022-04-19 15:43:00 69 mm[Hg] Unive rsity of pressure [facility] Heart rate 2022-04-19 15:43:00 64 [facility] Respiratory rate 2022-04-19 15:43:00 19 /min [facility] Body height 2022-04-19 15:43:00 180.3 cm [facility] acute hospital Body weight 2022-04-19 15:43:00 96.798 kg [facility] acute hospital BMI 2022-04-19 15:43:00 29.76 kg/m2 [facility] acute hospital Oxygen saturation in 2022-04-19 15:43:00 95 /min [facility] Arterial blood by [facility] Pulse oximetry [place] Procedures Procedure Date / Time Performing Clinician Source Performed DME/SUPPLY JUSTIFICATION 2022-04-19 05:01:00 Doctor Unassigned, No University [facility] Name [facility] TESTOSTERONE 2022-03-23 15:35:00 [facility] PSA,TOTAL AND FREE 2022-03-23 15:35:00 [facility] Encounters Start End Encounter Admission Attending Care Care Encounter Source Date/Time Date/Time Type Type Clinicians Facility Department ID 2022-10-20 2022-10-[address] [facility] 10 [id number] Univers 10:30:00 10:30:[address] i ty of [facility] 2022-04-19 2022-04-[address] [facility] 10 [id number] Univers 10:30:00 11:08:[address] i ty of [facility] 2022-04-19 2022-04-[address] [facility] 10 [id number] Univers 10:30:00 11:08:[address] i ty of [facility] 2022-04-19 2022-04-19 Office Shawna [facility] 1.2.840.114 [id number] Univers 10:30:00 11:08:06 Visit Sen ADAMS 350.1.13.10 i ty [facility] 4.2.7.2.686 Saroj ELDRIDGE [phone] Sd dic[address] 2022-04-19 2022-04-19 Orders Doctor AMAYA 1.2.840.114 [id number] Univers 00:00:00 00:00:00 Only Unassigned, REAL 350.1.13.10 ity of [place] [facility] 4.2.7.2.686 [place] [phone] [address] 2022-03-23 2022-03-23 Outpatient MATTHEW DENNY [facility] [id number] [facility] 14:11:05 14:11:05 BERTHA Melendez Medicin e 2021-12-23 2021-12-[address] [facility] 10 [id number] Univers 11:00:00 11:54:[address] i ty of [facility] 2021-12-23 2021-12-23 [facility] 1.2.840.114 [id number] Univers 11:00:00 11:54:55 Visit Sen ADAMS 350.1.13.10 i ty [place] [phone] [address] 2021-12-23 2021-12-23 Orders Doctor JOSE LUIS 1.2.840.114 [id number] Univers 00:00:00 00:00:00 Only Unassigned, REAL 350.1.13.10 ity of [place] [facility] 4.2.7.2.686 [place] [phone] [address] 2021-12-23 2021-12-23 Telephone [facility] 1.2.150.516 [id number] Univers 00:00:00 00:00:00 Sen ADAMS 350.1.13.10 i ty [place]2.[place] [phone] Sd dic[address] 2021-08-27 2021-08-27 Office [facility] 1.2.840.114 [id number] Univers 10:37:53 11:48:41 Visit Sen ADAMS 350.1.13.10 i ty of [place] 4[place]2.[place] [id number] Sd dic[address] 2021-08-27 2021-08-[address] [facility] 10 [id number] Univers 10:30:00 11:48:[address] i ty of [facility] 2021-08-27 2021-08-27 Orders Doctor JOSE LUIS 1.2.840.114 [id number] Univers 00:00:00 00:00:00 Only Unassigned, REAL 350.1.13.10 ity of [place] [facility] 4.2.7.2.686 [place] as [phone] [address] 2021-07-24 2021-07-25 Inpatient GURINDER Schwarz TELE [id number] [facility] 04:05:00 11:56:00 Nioti 07 [facility] 2021-07-16 2021-07-16 Office Shawna [facility] 1.2.840.114 [id number] Univers 09:59:13 10:59:53 Visit Sen Adams 350.1.13.10 i ty of [place]7.2.[place] [phone] Sd samaria[address] 2021-07-16 2021-07-[address] [facility] 10 [id number] Univers 10:00:00 10:00:[address] i ty of [facility] 2021-07-15 2021-07-15 Telephone Shawna [facility] [id number] Univers 00:00:00 00:00:00 Sen Adams 350.1.13.10 i ty of [place]2.[place] [phone] Sd samaria[address] 2021-07-15 2021-07-15 Orders Doctor JOSE LUIS 1.2.840.114 [id number] Univers 00:00:00 00:00:00 Only Unassigned, REAL 350.1.13.10 ity of [place] [facility] 4.2.7.2.686 [place] [phone] [address] 2021-07-13 2021-07-13 Telephone Shawna [facility] 1.2.988.094 [id number] Univers 00:00:00 00:00:00 Sen ADAMS 350.1.13.10 i ty of [place]2.[place] [phone] Sd dical NAL 5 [facility] 2021-07-09 2021-07-09 Telephone Shawna [facility] 1.2.414.202 [id number] Univers 00:00:00 00:00:00 Bertabarrington Adams 350.1.13.10 i ty of [place] 4[place]2.7.2.[place] [phone] Sd dicar nal [address] [place] [address] 2021-07-08 2021-07-08 Outpatient R RACHNA ARJPUT [facility] [id number] Univers 19:30:00 19:30:00 RACHNA RAJPUT ity [facility] 2021-07-08 2021-07-08 Visually Impaired Teacher 1, [facility] Sleep Lab Bed [facility] 1. 2.840.114 [id number] Univers 13:35:18 16:05:18 Visit Rachna Rajput 350.1.13. 10 ity of [place]2.686 [place] [phone] [facility] 193 [place] 2021-07-08 2021-07-08 Telephone Shawna [facility] 1.2.408.500 [id number] Univers 00:00:00 00:00:00 Sen Adams 350.1.13.10 i ty of [place]7.2.[place] [phone] Sd dical nal [address] [place] [address] 2021-07-06 2021-07-06 Laboratory Only, [facility] Test [facility] 1.2.840. 114 [id number] Univers 13:29:39 13:44:39 Only Yong Ron 350.1.13.10 ity of [place] 4[place]2.7.2.[place] [phone] [facility] 353 [place] 2021-07-06 2021-07-06 Outpatient R [facility] [id number] Univers 13:15:00 13:15:00 ity of [facility] 2021-07-06 2021-07-06 Orders Doctor AMAYA 1.2.840.114 [id number] Univers 00:00:00 00:00:00 Only Unassigned, REAL 350.1.13.10 ity of [place] [facility] 4.2.7.2.686 [place] [phone] [address] 2021-07-05 2021-07-05 Telephone Shawna [facility] 1.2.870.955 [id number] Univers 00:00:00 00:00:00 Shimynorn [place] 350.1.13.10 i ty of [place] 4.2.7.2.[place] [phone] [address] 2021-06-24 2021-06-24 Telephone [facility] 1.2.462.172 [id number] Univers 00:00:00 00:00:00 Sen [place] 350.1.13.10 i ty of [place] 4.2.7.2.[place] [id number] [address] 2021-06-17 2021-06-17 Office Shawna [facility] 1.2.840.114 [id number] Univers 08:53:39 10:01:16 Visit Sen Adams 350.1.13.10 i ty of [place] 4.2.7.2.[place] [phone] [address] 2021-06-17 2021-06-[address] [facility] 10 [id number] Univers 09:00:00 09:00:[address] i ty of [facility] 2021-06-17 2021-06-17 Orders Doctor JOSE LUIS 1.2.840.114 [id number] Univers 00:00:00 00:00:00 Only Unassigned, REAL 350.1.13.10 ity of [place] [facility] 4.2.7.2.686 [place] [id number] [address] 2021-05-21 2021-05-21 Office [facility] 1.2.840.114 [id number] Univers 13:10:44 14:23:43 Visit Sen [place] 350.1.13.10 i ty of [place] 4[place]2.7.2.[place] [phone] Sd dical nal 085 [facility] 2021-05-21 2021-05-[address] [facility] 10 [id number] Univers 13:00:00 13:00:[address] i ty of [facility] 2021-05-21 2021-05-21 Orders Doctor AMAYA 1.2.840.114 [id number] Univers 00:00:00 00:00:00 Only Unassigned, REAL 350.1.13.10 ity of [place] [facility] 4.2.7.2.686 [place] [phone] [facility] 009 [place] 2021-05-21 2021-05-21 Orders Doctor AMAYA 1.2.840.114 [id number] Univers 00:00:00 00:00:00 Only Unassigned, REAL 350.1.13.10 ity of [place] [facility] 4.2.7.2.686 [place] [phone] [facility] 009 [place] 2021-05-19 2021-05-19 Telephone [facility] 1.2.129.153 [id number] Univers 00:00:00 00:00:00 Sen [place] 350.1.13.10 i ty [facility] 4.2.7.2.[place] [phone] Sd dical nal [address] [place] [address] 2020-12-16 2020-12-16 Outpatient R TORITO [facility] [id number] Univers 14:00:00 14:00:00 NATE azevedo [facility] 2020-12-11 2020-12-11 Laboratory Only, Adc Test [facility] 1.2.840. 114 [id number] Univers 11:38:08 11:53:08 Only Nate Ugarte 350.1.13. 10 ity [facility] 4.2.7.2.[place] [phone] [facility] [address] [place] 2020-12-11 2020-12-11 Outpatient R TORITO [facility] [id number] Univers 10:45:00 10:45:00 NATE azevedo [facility] 2020-12-11 2020-12-11 Orders Doctor JOSE LUIS 1.2.840.114 [id number] Univers 00:00:00 00:00:00 Only Unassigned, REAL 350.1.13.10 ity of [place] [facility] 4.2.7.2.686 [place] [phone] [address] 2020-08-25 2020-08-25 Laboratory Lab, [facility] Fam Pob I [facility] 1.2. 840.114 [id number] [facility] 16:00:38 16:20:38 Only Orlando Bradford [facility] 350.1.13.10 ity of [place] 4.2.7.2.686 [place] Professio [phone] Sd dical [facility] [address] [place] [address] 2020-08-25 2020-08-25 Laboratory Lab, [facility] 1.2.840.114 [id number] 16:00:38 16:20:38 Only Fam Pob I Health 350.1.13.10 [place] 4.2.7.2.686 Professio [phone] [place] [address] [address] 2020-08-25 2020-08-25 Outpatient R CARLOS [facility] [id number] [facility] 16:00:00 16:00:00 [facility] Results Test Description Test Time Test Comments Results Result Comments Source - XR CHEST 1V 2021-07-25 06:23:00 [facility] : 1940 Sex: M Patient Name: LAVINIA BAJWA Unit No: [id number] EXAMS: CPT CODE: [id number] XR CHEST 1V 83962 Location of dictation: B2 Portable chest one [...] Lacho Darling, RT(R) Transcrpt Date/Tm/Trnsp: 07/25/2021 (0623) t.SDR.PXC Orig Print D/T: S: 07/25/2021 (0638) [facility] NAME: LAVINIA BAJWA [id number] [place] [address] PHYS: [place] [address] : 1940 AGE: 81 SEX: M LOC: Z.358 A PHONE #: [phone] EXAM DATE: 07/25/2021 STATUS: ADM IN FAX #: [phone] RADIOLOGY NO: PAGE 1 Signed Report BASIC [...] units: ml/min/1.73 code = GFR) m2 (Modified RD Formula)Referen ce Range: > or = 60 ml/min/1.7 3 m2 CREATININE (test code = CREAT) 1.00 MG/DL 0.66-1.25 N CALCIUM (test code = CA) 8.5 MG/DL 8.4-10.2 N CBC W/AUTO [id number] 05:22:00 Test Item Value Reference Range Interpretation [...] K/mm3 0.0-0.1 N NRBC#) - XR CHEST [id number] 11:33:00 [facility] : 1940 Sex: M Patient Name: LAVINIA BAJWA Unit No: [id number] EXAMS: CPT CODE: [id number] XR CHEST 1V 30797 HISTORY: PPI Location: C3 COMPARISON:None FINDINGS: Heart size and vascularity are within normal limits. The lungs areclear of focal consolidation. No effusion, pneumothorax, or acute osseous abnormality. IMPRESSION: 1. No focal consolidation. No other acute abnormalities. Electronically Signed by Lavinia Resendez MD on07/24/2021 at 1133 Reported and signed by: Lavinia Resendez MD CC: Juve Bell MD Technologist: Cheryl Snyder RT Transcrpt Date/Tm/Trnsp: 07/24/2021 (1133) t.SDR.RXC2 Orig Print D/T: S: 07/24/2021 (1136) [facility] NAME: LAVINIA BAJWA [id number] [place] PHYS: Juve Arriola MD [place], [place] [address] : 1940 AGE: 81 SEX: M LOC: Z.DC5 B PHONE #: [phone] EXAM DATE: 07/24/2021 STATUS: ADM IN FAX #: [phone] RADIOLOGY NO: PAGE 1 Signed [id number] 07:37:00 Test Item Value Reference Range Interpretation Comments MAGNESIUM (test code = MAG) 2.4 MG/DL 1.6-2.3 H THYROID STIMULATING [id number] 07:37:00 Test Item Value Reference Range Interpretation Comments THYROID STIMULATING 1.940 MIU/L 0.465-4.68 N Please b e aware that HORMONE (test code = bias re sults for TSH TSH) may occur forpa tient who are taking Biotin suppleme nts. COMPREHENSIVE METABOLIC [id number] 07:37:00 Test Item Value Reference Range Interpretation [...] Vitros Product Total Protein:======= Eltrombopag Max Observed A vg. BiasConcentrati on Concentration Concentration== ==== 2.5 mg/dl [...] Concentration== ====TBil 7mg/dl TBil/ 1. 2mg/dl +0.23mg.dl +0.2 0mg/dlBuBc 3.5mg/dl Bu/0.8 mg/dl +0.25mg/dl +0.2 4mg/dlBuBc 7 [...] 0-189 mg/dL VERY HIGH.........>/ = 190 mg/dL PROTHROMBIN [id number] 07:20:00 Test Item Value Reference Range Interpretation [...] va lve, or acute myocar dial infarction. 2. 0 - 3.0 3. 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 3.0 - 4.5 PTT [id number] 07:20:00 Test Item Value Reference Range Interpretation Comments PTT ACTIVATED (test code = APTT) 29.0 SECONDS 25.1-36.5 N CBC W/AUTO [id number] 07:04:00 Test Item Value Reference Range Interpretation [...] 0.0-0.1 N NRBC#) COVID 19 Asymptomatic IH [id number] 05:21:00 Test Item Value Reference Range Interpretation [...]
[2022-08-10] MEDS ORDERED: NA CHLORIDE 0.9% 1,000 ML ONE (17:17)
[2022-08-10 17:25] LABS: Absolute Lymphocytes (CBC) 1.5 K/uL (0.7-4.9); Hematocrit 44.8 % (39.6-49.0); Lymphocytes % 23.1 % (15.3-44.8); MCV 93.7 fL (80-100); MPV 8.8 fL (7.6-11.3); RBC Red Blood Cell Count 4.78 M/uL (4.33-5.43)
[2022-08-10 17:35] LABS: SARS-CoV-2 Antigen Rapid Res Negative (Negative)
[2022-08-10 17:41] LABS: Albumin 3.5 g/dL (3.4-5.0); Bilirubin Direct 0.2 mg/dL (0-0.2); Bilirubin Total 0.4 mg/dL (0.2-1.0); Magnesium 2.5 mg/dL (1.8-2.4); Potassium 3.9 mmol/L (3.5-5.1); Protein, Total 7.4 g/dL (6.4-8.2)
[2022-08-10] MEDS ORDERED: ASPIRIN 81 MG CHEWABLE TABLET ONE (17:45)
[2022-08-10] MEDS ORDERED: CLOPIDOGREL 75 MG TABLET ONE ×2 (17:45→17:50)
[2022-08-10] MEDS ORDERED: HEPARIN 5000 UNIT/ML 1 ML VIAL ONE (17:45)
[2022-08-10] MEDS ORDERED: TENECTEPLASE 50 MG/10 ML VIAL IV ONE (17:45)
[2022-08-10] MEDS ORDERED: HEPARIN/D5W 0 UNIT/0 ML BAG IV ONE (17:46)
[2022-08-10] MEDS ORDERED: FAMOTIDINE 20 MG/2 ML VIAL IV ONE (17:46)
[2022-08-10 17:47] LABS: Troponin High Sensitivity 82.9 pg/mL (<58.9)
--- NOTE | 2022-08-10 17:57 | RAD REPORT ---
EXAM DESCRIPTION: RAD - Chest Single View - 08/10/2022 5:35 pm CLINICAL HISTORY: CHEST PAIN Chest pain. COMPARISON: Chest Pa And Lat (2 Views) dated 05/12/2022; Chest Single View dated 11/02/2020; Chest Sing le View dated 05/23/2017; Chest Single View dated 05/12/2017 FINDINGS: Portable technique limits examination quality. The lungs are grossly clear. The heart is normal in size. No displaced fractures.Dual lead pacer harshil ce. IMPRESSION: No acute intrathoracic process suspected.
--- NOTE | 2022-08-10 18:06 | ER ---
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 Coronavirus screen: Vaccine ll1 status: Patient reports receiving the 1st dose of the Covid vaccine. Client denies travel out of the [place] in the last 14 days. At this time, the client does not indicate any symptoms associated with coronavirus-19. Ebola Screen: Patient denies travel to an Ebola-affected area in the 21 days before illness onset. Initial Sepsis Screen: Does the patient meet any 2 criteria? No. Patient's initial sepsis screen is negative. Does the patient have a suspected source of infection? No. Patient's initial sepsis screen is negative. Risk Assessment: Do you want to hurt yourself or someone else? Patient reports no desire to harm self or others. Onset of symptoms was August 10, 2022. 16:50 Method Of Arrival: Ambulatory ll1 16:50 Acuity: BRYAN 2 ll1 Triage Assessment: 16:51 General: Appears uncomfortable, Behavior is cooperative, appropriate for age. Pain: ll1 Complains of pain in chest Pain currently is 9 out of 10 on a pain scale. Quality of pain is described as pressure. Neuro: No deficits noted. Cardiovascular: Reports chest pain. Respiratory: No deficits noted. Historical: - Allergies: 16:49 Celebrex; ll1 16:49 Ramipril; ll1 16:49 all meds that end in "pril"; ll1 - PMHx: 16:49 CAD; enlarged prostate; High Cholesterol; Hypertension; Myocardial infarction; Sleep ll1 Apnea; - PSHx: 16:49 pacemaker; 2 stents; ll1 - Immunization history:: Client reports receiving the 1st dose of the Covid vaccine. - Social history:: Smoking status: Patient denies any tobacco usage or history of. - Family history:: not pertinent. Screenin:38 Abuse screen: Denies threats or abuse. Denies injuries from another. Nutritional ko1 screening: No deficits noted. Tuberculosis screening: No symptoms or risk factors identified. Fall Risk None identified. Assessment: 17:00 General: Appears in no apparent distress. comfortable, Behavior is calm, cooperative, ko1 appropriate for age. Pain: Complains of pain in chest Pain does not radiate. Pain began 4 hours ago. Is intermittent. Neuro: No deficits noted. Cardiovascular: Reports chest pain, since noon Patient's skin is warm and dry. Rhythm is Chest pain. Respiratory: No deficits noted. GI: No deficits noted. : No deficits noted. EENT: No deficits noted. Derm: No deficits noted. Musculoskeletal: No deficits noted. 17:10 Tenecteplase (TNKase) screening: Warnings: Suspected left heart thrombus (atrial ko1 fibrillation with mitral stenosis): Yes. Vital Signs: 16:50 BP 170 / 96; Pulse 61; Resp 17; Temp 97.8; Pulse Ox 96% on R/A; Weight 93.44 kg; Height ll1 5 ft. 11 in. (180.34 cm); Pain 8/10; 17:38 BP 134 / 78; Pulse 60; Resp 16; Temp 98; Pulse Ox 99% on R/A; ko1 16:50 Body Mass Index 28.73 (93.44 kg, 180.34 cm) ll1 ED Course: 16:42 Patient arrived in ED. as 16:48 Arm band placed on. ll1 16:49 Patient placed in an exam room, on a stretcher. ll1 16:50 Cindy Dickinson, RN is Primary Nurse. ko1 16:51 Triage completed. ll1 17:00 Johnathon Maddox MD is Attending Physician. shyam 17:10 EKG done, by ED staff, reviewed by Johnathon Maddox MD. ko1 17:12 SARS RAPID Sent. ko1 17:15 Basic Metabolic Panel Sent. ko1 17:15 CBC with Diff Sent. ko1 17:15 LFT's Sent. ko1 17:15 Magnesium Sent. ko1 17:15 NT PRO-BNP Sent. ko1 17:15 PT-INR Sent. ko1 17:15 Troponin HS Sent. ko1 17:15 Lipase Sent. ko1 17:15 Inserted saline lock: 20 gauge in right antecubital area, using aseptic technique. jd3 Blood collected. 17:36 XRAY Chest (1 view) In Process Unspecified. EDMS 17:38 Patient has correct armband on for positive identification. Allergy band placed. Placed ko1 in gown. Bed in low position. Call light in reach. Side rails up X 1. Adult w/ patient. Client placed on continuous cardiac and pulse oximetry monitoring. NIBP monitoring applied. pvc monitor on. Pulse ox on. Notified ED physician of other EKG. 17:38 No provider procedures requiring assistance completed. Patient transferred, IV remains ko1 in place. Patient maintains SpO2 saturation greater than 95% on room air. Administered Medications: 17:07 CANCELLED (Duplicate Order): Aspirin 81 mg PO once shyam 17:18 Drug: NS 0.9% 1000 ml Route: IV; Rate: 125 ml/hr; Site: left antecubital; ko1 17:50 Drug: Tenecteplase 50 mg {Co-Signature: [email or web address] (Lenore Moya RN).} Route: IV; Rate: ko1 per protocol; Site: right antecubital; 17:51 Drug: Aspirin Chewable Tablet 324 mg Route: PO; ko1 17:51 Drug: Pepcid (famotidine) 20 mg Route: IVP; Site: right antecubital; ko1 17:53 Drug: PlaVIX (clopidogrel) 300 mg Route: PO; ko1 17:53 Drug: Heparin ([place]-Bolus with thrombolytic) - HEParin 60 units/kg {Co-Signature: [email or web address] [email or web address] (Lenore Moya RN).} Route: IVP; Site: right antecubital; Medication: 17:38 VIS not applicable for this client. ko1 Outcome: 17:38 Transferred by helicopter to [facility], Transfer form completed. ko1 17:38 Condition: stable 17:38 Discharge instructions given to patient, Instructed on the need for transfer, Demonstrated understanding of 18:06 ER care complete, transfer ordered by . ko1 18:06 Patient left the ED. ko1 Signatures: Dispatcher [employer] EDMI Johnathon Maddox MD MD cha Martinez, Amelia as Davies, Jonathon, RN RN Jaqueline Moreno RN RN sheree1 Cindy Dickinson RN RN ko1 Lenore Moya RN kc6 Corrections: (The following items were deleted from the chart) 18:01 17:00 Tenecteplase (TNKase) screening: Warnings: Suspected left heart thrombus (atrial ko1 fibrillation with mitral stenosis): Yes. ko1
--- NOTE | 2022-08-10 18:06 | EDPHYS ---
Physician Documentation [facility] Name: Mendez Bajwa Age: 82 yrs Sex: Male : 1940 Arrival Date: 08/10/2022 Time: 16:42 Bed 3 Private MD: ED Physician Johnathon Maddox HPI: 08/10 17:12 This 82 yrs old Male presents to ER via Ambulatory with complaints of Chest shyam Pain. 17:12 The patient or guardian reports chest pain that is located primarily in the substernal shyam area, anterior chest wall, bilaterally. Onset: just prior to arrival, today. The pain does not radiate. Associated signs and symptoms: Pertinent positives: lightheadedness, nausea, shortness of breath. The chest pain is described as causing indigestion, a pressure. Duration: The patient or guardian reports multiple episodes, with no pattern. Severity of pain: At its worst the pain was moderate in the emergency department the pain is unchanged. The patient has experienced similar episodes in the past, a few times. Historical: - Allergies: 16:49 Celebrex; ll1 16:49 Ramipril; ll1 16:49 all meds that end in "pril"; ll1 - PMHx: 16:49 CAD; enlarged prostate; High Cholesterol; Hypertension; Myocardial infarction; Sleep ll1 Apnea; - PSHx: 16:49 pacemaker; 2 stents; ll1 - Immunization history:: Client reports receiving the 1st dose of the Covid vaccine. - Social history:: Smoking status: Patient denies any tobacco usage or history of. - Family history:: not pertinent. ROS: 17:12 Constitutional: Negative for fever, chills, and weight loss, Eyes: Negative for injury, shyam pain, redness, and discharge, ENT: Negative for injury, pain, and discharge, Neck: Negative for injury, pain, and swelling, Respiratory: Negative for shortness of breath, cough, wheezing, and pleuritic chest pain, Abdomen/GI: Negative for abdominal pain, nausea, vomiting, diarrhea, and constipation, Back: Negative for injury and pain, : Negative for injury, bleeding, discharge, and swelling, MS/Extremity: Negative for injury and deformity, Skin: Negative for injury, rash, and discoloration, Neuro: Negative for headache, weakness, numbness, tingling, and seizure. 17:12 Cardiovascular: Positive for chest pain, of the chest. Exam: 17:12 Constitutional: This is a well developed, well nourished patient who is awake, alert, shyam and in no acute distress. Head/Face: Normocephalic, atraumatic. Eyes: Pupils equal round and reactive to light, extra-ocular motions intact. Lids and lashes normal. Conjunctiva and sclera are non-icteric and not injected. Cornea within normal limits. Periorbital areas with no swelling, redness, or edema. ENT: Nares patent. No nasal discharge, no septal abnormalities noted. Tympanic membranes are normal and external auditory canals are clear. Oropharynx with no redness, swelling, or masses, exudates, or evidence of obstruction, uvula midline. Mucous membranes moist. Neck: Trachea midline, no thyromegaly or masses palpated, and no cervical lymphadenopathy. Supple, full range of motion without nuchal rigidity, or vertebral point tenderness. No Meningismus. Chest/axilla: Normal chest wall appearance and motion. Nontender with no deformity. No lesions are appreciated. Respiratory: Lungs have equal breath sounds bilaterally, clear to auscultation and percussion. No rales, rhonchi or wheezes noted. No increased work of breathing, no retractions or nasal flaring. Abdomen/GI: Soft, non-tender, with normal bowel sounds. No distension or tympany. No guarding or rebound. No evidence of tenderness throughout. Back: No spinal tenderness. No costovertebral tenderness. Full range of motion. Male : Normal genitalia with no discharge or lesions. Skin: Warm, dry with normal turgor. Normal color with no rashes, no lesions, and no evidence of cellulitis. 17:12 Cardiovascular: Rate: normal, actual rate is 60 bpm, Rhythm: regular, Pulses: Pulses are 4+ in bilateral radial, brachial, femoral, popliteal, posterior tibial and and dorsalis pedis arteries.. Heart sounds: normal, Edema: is not appreciated, JVD: is not appreciated. 17:12 ECG was reviewed by the Attending Physician. Vital Signs: 16:50 BP 170 / 96; Pulse 61; Resp 17; Temp 97.8; Pulse Ox 96% on R/A; Weight 93.44 kg; Height ll1 5 ft. 11 in. (180.34 cm); Pain 8/10; 17:38 BP 134 / 78; Pulse 60; Resp 16; Temp 98; Pulse Ox 99% on R/A; ko1 16:50 Body Mass Index 28.73 (93.44 kg, 180.34 cm) ll1 MDM: 17:00 Patient medically screened. shyam 17:21 Differential diagnosis: abnormal EKG, acute myocardial infarction, acute pericarditis, shyam coronary artery disease chest wall pain, congestive heart failure costochondritis, esophagitis, hiatal hernia, myocarditis, pancreatitis, pulmonary embolus, stable angina, thoracic aortic disection, unstable angina. HEART Score: History: Highly Suspicious (2), ECG: Significant ST-deviation (2), Age: > or = 65 years (2), Risk Factors: > or = 3 Risk factors for atherosclerotic disease (2), [Hypercholesterolemia] [Hypertension] [+ Family HX] [Obesity] Troponin: < or = 1 x Normal Limit (0), Total Score = 8. The patient was given aspirin in the Emergency Department. The patient's deep vein thrombosis risk score was calculated as follows: Total Score: 0. This patient was found to be at low risk for a deep vein thrombosis by using the Well's assessment criteria. The patient's pulmonary embolism risk score was calculated as follows: Total Score: 0-2 points. This patient was found to be at low risk for a pulmonary embolism by using the Well's assessment criteria. SHAZIA Risk Score: 1 - patient's age is greater or equal to 65 years, 1 - Three or more CAD risk factors, 1- Known CAD, 1 - ASA use in past 7 days, 1 - Recent [<24hrs] Severe Angina, 1 - ST deviation >0.5mm, TOTAL SCORE = 6. Data reviewed: vital signs, nurses notes, lab test result(s), EKG, radiologic studies, plain films. Data interpreted: polisher sand: rate is 61 beats/min, rhythm is regular, Pulse oximetry: on room air is 96 %. Test interpretation: by ED physician or midlevel provider: ECG, plain radiologic studies. Counseling: I had a detailed discussion with the patient and/or guardian regarding: the historical points, exam findings, and any diagnostic results supporting the discharge/admit diagnosis, the presence of at least one elevated blood pressure reading (>120/80) during this emergency department visit, lab results, radiology results, the need to transfer to another facility, for higher level of care, [facility] does not immediately have the required specialist. 08/10 17:01 Order name: Basic Metabolic Panel [facility] 08/10 17:01 Order name: CBC with Diff [facility] 08/10 17:01 Order name: LFT's [facility] 08/10 17:01 Order name: Magnesium [facility] 08/10 17:01 Order name: NT PRO-BNP [facility] 08/10 17: Order name: PT-INR [facility] 08/10 17:01 Order name: Troponin HS [facility] 08/10 17:01 Order name: XRAY Chest (1 view) [facility] 08/10 17: Order name: Lipase [facility] 08/10 17:01 Order name: SARS RAPID [facility] 08/10 17: Order name: EKG; Complete Time: 17:02 [facility] 08/10 17:01 Order name: Cardiac monitoring; Complete Time: 17:12 [facility] 08/10 17:01 Order name: EKG - Nurse/Tech; Complete Time: 17:12 [facility] 08/10 17: Order name: IV Saline Lock; Complete Time: 17:15 [facility] 08/10 17:01 Order name: Labs collected and sent; Complete Time: 17:15 [facility] 08/10 17:01 Order name: O2 Per Protocol; Complete Time: 17:12 [facility] 08/10 17:01 Order name: O2 Sat Monitoring; Complete Time: 17:12 [facility] EC:12 Rate is 60 beats/min. Rhythm is regular. QRS [place] is Normal. [place] interval is normal. QRS shyam interval is normal. QT interval is normal. No Q waves. T waves are Normal. T waves are Inverted in leads I, aVL, V6. ST Segment is elevated in leads II, III, aVF. Clinical impression: Inferior WI - acute. Interpreted by me. Reviewed by me. Administered Medications: 17:07 CANCELLED (Duplicate Order): Aspirin 81 mg PO once [facility] 17:18 Drug: NS 0.9% 1000 ml Route: IV; Rate: 125 ml/hr; Site: left antecubital; ko1 17:50 Drug: Tenecteplase 50 mg {Co-Signature: [email or web address] (Lenore Moya RN).} Route: IV; Rate: ko1 per protocol; Site: right antecubital; 17:51 Drug: Aspirin Chewable Tablet 324 mg Route: PO; ko1 17:51 Drug: Pepcid (famotidine) 20 mg Route: IVP; Site: right antecubital; ko1 17:53 Drug: PlaVIX (clopidogrel) 300 mg Route: PO; ko1 17:53 Drug: Heparin ([place]-Bolus with thrombolytic) - HEParin 60 units/kg {Co-Signature: [email or web address] ko1 (Lenore Moya RN).} Route: IVP; Site: right antecubital; Disposition Summary: 08/10/22 18:06 Transfer Ordered Accepting Physician: Jayden lee Transfer Location: [facility] ko1 Reason: Higher level of care ko1 Condition: Stable ko1 Diagnosis - ST elevation (STEMI) myocardial infarction of inferior wall ko1 Forms: - Medication Reconciliation Form ko1 - SBAR form ko1 Signatures: Dispatcher [employer] Johnathon Argueta MD MD cha Davies, Jonathon, RN RN jd3 Lewis, Lynsay, RN RN ll1 Cindy Dickinson RN RN ko1 Lenore Moya RN kc6 Corrections: (The following items were deleted from the chart) 17:07 17:01 Aspirin 81 mg PO once ordered. shyam howe
[2022-08-10 19:08] VITALS: BP 134/78; TEMP 98; O2SAT 99
--- NOTE | 2022-08-13 19:20 | EKG ---
Test Date: 2022-08-10 Test Time: 17:02:01 Fisher Scallop: NAFISA MEASUREMENT RESULTS: Intervals: Rate: 60 [place]: 232 QRSD: 134 QT: 428 QTc: 428 [place]: P: 28 [place]: 232 QRS: 54 T: 80 INTERPRETIVE STATEMENTS: Electronic atrial pacemaker Nonspecific intraventricular block Inferior infarct, possibly acute Anterolateral infarct, age undetermined ACUTE NH Consider right ventricular involvement in acute inferior infarct Abnormal ECG Compared to ECG 11/02/2020 09:25:09 Sinus rhythm no longer present First degree AV block no longer present Myocardial infarct finding still present Electronically Signed On 08-13-22 19:11:18 SENIOR AUDITOR by Tiago Gallegos
== END 2022-08-10 18:06 | disposition short-term general hospital (02) ==
LOC: ER 16:38
DX: I21.19 ST elevation (STEMI) myocardial infarction involving other coronary artery of inferior wall (principal); I10 Essential (primary) hypertension; E78.00 Pure hypercholesterolemia, unspecified; Z95.0 Presence of cardiac pacemaker; Z20.822 Contact with and (suspected) exposure to COVID-19; Z88.8 Allergy status to other drugs, medicaments and biological substances
CPT/HCPCS: 92977; 93005; 85025; 80048; 36415; 83735; 85610; 80076; 84484; 83690; 83880; 71045; 96375; 96374; 99285; 87811; J1644; J3101; J7030